=== PATIENT | male | born 1965 | race Caucasian/White ===

== ENCOUNTER 2020-05-10 20:13 | Emergency (ER) | payer BC, SELFPAY ==
[2020-05-10 20:14] VITALS: BP 150/96; PULSE 79; RESP 16; TEMP 36.7; O2SAT 98; BMI 23.7
--- NOTE | 2020-05-10 20:32 | CT_ITS ---
PROCEDURE: CT HEAD/BRAIN WO CON CLINICAL INDICATION: dizzy spells Dizziness COMPARISON: No exams were available for comparison TECHNIQUE: Axial images obtained. All CT scans at the facility use one or more dose reduction, viz: automated exposure control, ma/kV adjustment per patient size (including targeted exams where dose is matched to indication, i.e. head), or iterative reconstruction technique. FINDINGS: No midline shift, mass effect, intracranial hemorrhage, hydrocephalus, or extra-axial fluid collection is evident. The calvarium has an unremarkable appearance. No mastoid effusion. No sinus air-fluid level. IMPRESSION: No acute intracranial finding Dictated by: Paco Orona MD 05/11/2020 05:47 Paco Orona MD in [facility] 05/11/2020 05:47
--- NOTE | 2020-05-10 20:32 | ECG_ITS ---
APPROVED REPORT Exam: Resting ECG HR:77 bpm ECG Measurements Heart Rate 77 AXES LA 140 P 76 QRSd 86 QRS 56 QT 390 T 49 QTc 441 Conclusion Normal sinus rhythm Normal ECG Electronically signed by : Aaron Smart, 05/11/2020 09:21:12
--- NOTE | 2020-05-10 20:33 | XR_ITS ---
PROCEDURE: XR CHEST 2V CLINICAL HISTORY: dizziness COMPARISON: No exams were available for comparison FINDINGS: The cardiomediastinal silhouette and pulmonary vascularity are within normal limits. The lungs are clear without infiltrates, suspicious nodules, or pleural effusions. No acute bony abnormalities. IMPRESSION: No acute findings. Dictated by: Paco Orona MD 05/10/2020 21:45 Paco Orona MD in [facility] 05/10/2020 21:45
--- NOTE | 2020-05-10 20:42 | CT_ITS ---
PROCEDURE: CT CERVICAL SPINE WO CON CLINICAL INDICATION: dizziness COMPARISON: No exams were available for comparison TECHNIQUE: Axial images obtained with sagittal and coronal reformats. All CT scans at the facility use one or more dose reduction, viz: automated exposure control, ma/kV adjustment per patient size (including targeted exams where dose is matched to indication, i.e. head), or iterative reconstruction technique. Axial spiral CT scanning performed of the cervical spine beginning at the base of the skull and continuing to the upper T-spine. 3-D multiplanar reconstruction with 3-D manipulation of volumetric data set in image rendering was completed by the radiologist and/or technologist with the supervision of the radiologist on independent workstation. FINDINGS: No fracture or dislocation evident. There is straightening of the cervical lordosis at the C3-C4 level. There is some decrease in height anteriorly of C4 and C5 with small osteophytes anteriorly. This is felt to represent chronic change. No cortical fractures are evident. The lung apices are clear. There are scattered small nodes in the neck. Nodularity is noted involving the posterior aspect of the left lobe of the thyroid gland at 11 mm. IMPRESSION: No acute fracture or dislocation. Degenerative changes C3-C4 and C4-C5. There is straightening/reversal of the normal lordosis which may be due to patient positioning or muscle spasm. Dictated by: Paco Orona MD 05/11/2020 05:53 Paco Orona MD in [facility] 05/11/2020 05:53
--- NOTE | 2020-05-10 20:43 | HMH.EDDIZZ ---
ED Disposition Clinical Impression: Vertigo Disposition: Home, Self-Care Condition on Discharge: Good Instructions: Dizziness, Nonvertigo Additional Instructions: use meds and see pcp for follow up Prescriptions: Meclizine HCl [Antivert 25mg tablet] 25 mg PO TID #15 tab Prescription Printed Referrals: Yuliana Cardoso APRN [Primary Care Provider] - - Critical Care Critical Care Time: No Attestation: On 05/10/20, the high probability of a clinically significant, sudden or life threatening deterioration of the following system(s) required my full and direct attention, intervention and personal management. The time I documented below is in addition to time spent performing reported procedures but includes the following listed in this critical care notation. Medical Decision Making - Medical Records Medical records reviewed: Yes: I reviewed the patient's medical records. - [place] Inquiry Pt receiving controlled substance: No Vital Signs: 05/10/20 20:14 05/10/20 21:14 05/10/20 22:14 Temperature 98.1 F Temperature Source Oral Pulse Rate [Left Radial] 79 75 76 Respiratory Rate 16 16 15 Blood Pressure [Right Arm] 150/96 H 137/81 121/72 Blood Pressure Mean [Right Arm] 114 99 88 Blood Pressure Source [Right Arm] Automatic Cuff Automatic Cuff Automatic Cuff Blood Pressure Position [Right Arm] Sitting Sitting Sitting 02 Sat by Pulse Oximetry 98 97 96 Oxygen Delivery Method Room Air Room Air Room Air 05/10/20 23:00 Temperature Temperature Source Pulse Rate [Left Radial] 63 Respiratory Rate 16 Blood Pressure [Right Arm] 118/77 Blood Pressure Mean [Right Arm] 90 Blood Pressure Source [Right Arm] Automatic Cuff Blood Pressure Position [Right Arm] Sitting 02 Sat by Pulse Oximetry 97 Oxygen Delivery Method Room Air - Lab Data Lab results reviewed: Yes: I reviewed the patient's lab results. Lab Results 05/10/20 20:23: WBC 8.9, RBC 5.31, Hgb 16.8, Hct 50.7, MCV 95.5 H, MCH 31.6 H, MCHC 33.1, RDW 13.0, Plt Count 228, MPV 7.6, Neut % (Auto) 80.4 H, Lymph % (Auto) 15.5, [place] % (Auto) 2.9, Eos % (Auto) 0.9, Baso % (Auto) 0.2, Neut # (Auto) 7.2, Lymph # (Auto) 1.4, [place] # (Auto) 0.3, Eos # (Auto) 0.1, Baso # (Auto) 0.0 05/10/20 20:23: Sodium 146 H, Potassium 3.7, Chloride 103, Carbon Dioxide 32 H, Anion Gap 14.7, BUN 13, Creatinine 0.80, Estimated Creat Clear 123, Estimated GFR 101, Est GFR ( Amer) 122, Glucose 164 H, Calcium 10.0, Total Bilirubin 1.0, AST 27, ALT 23, Alkaline Phosphatase 77, Troponin I < 0.01, Total Protein 8.6 H, Albumin 4.9, Globulin 3.7 H, Albumin/Globulin Ratio 1.3 05/10/20 20:23: Plasma/Serum Alcohol < 10 05/10/20 20:23: ESR 2 05/10/20 20:23: C-Reactive Protein 0.6 Result diagrams: 05/10/20 20:23 05/10/20 20:23 Orders (Tests/Meds): ED MEDICATIONS Generic Name Dose Route Start Last Admin Trade Name Freq PRN Reason Stop Dose Admin Sodium Chloride 1,000 mls @ 999 mls/hr 05/10/20 21:15 05/10/20 21:13 Sod Chlor 0.9% 1000ml Bag IV 05/10/20 22:15 999 mls/hr .Q1H1M ABEBA Administration Discontinued Medications Generic Name Dose Route Start Last Admin Trade Name Freq PRN Reason Stop Dose Admin Iopamidol 100 ml 05/10/20 21:44 05/10/20 21:46 Iopamidol-370 (76%);100ml Bottle IV 05/10/20 21:45 100 ml ONCE ONE Administration Meclizine HCl 25 mg 05/10/20 22:28 05/10/20 23:06 Meclizine 25mg Tablet PO 05/10/20 22:29 25 mg ONCE ONE Administration Methylprednisolone Sodium Succinate 125 mg 05/10/20 21:23 05/10/20 21:27 Methylprednisolone Sod Succ 125mg Vial IV 05/10/20 21:24 125 mg ONCE ONE Administration Ondansetron HCl 4 mg 05/10/20 21:23 05/10/20 21:27 Ondansetron 4mg/2ml Vial IV 05/10/20 21:24 4 mg ONCE ONE Administration Sodium Chloride 50 ml 05/10/20 21:44 05/10/20 21:46 0.9 % Sodium Chloride 50 Ml Vial IV 05/10/20 21:45 50 ml ONCE ONE Administration Sodium Chloride 10 ml 05/10/20 21:44 05/10/20 21:46
[2020-05-10 20:44] LABS: Basophils % 0.2 % (0.1-2.0); Eosinophils # 0.1 K/mm3 (0.0-0.4); Eosinophils % 0.9 % (0.1-12.0); Hematocrit 50.7 % (42.0-52.0); Hemoglobin 16.8 g/dL (14.1-18.0); Lymphocytes # 1.4 K/mm3 (0.7-4.5); Lymphocytes % 15.5 % (10-50); Mean Corpuscular HGB Conc 33.1 g/dL (31.8-35.4); Mean Corpuscular Hemoglobin 31.6 pg (27.0-31.2); Mean Corpuscular Volume 95.5 fl (80-94); Mean Platelet Volume 7.6 fl (7.4-10.4); Monocytes # 0.3 K/mm3 (0.1-1.0); Monocytes % 2.9 % (1.7-9.3); Neutrophils # 7.2 K/mm3 (1.8-7.8); Neutrophils % 80.4 % (37.0-80.0); Platelet Count 228 K/mm3 (142-424); Red Blood Count 5.31 M/mm3 (4.60-6.20); White Blood Count 8.9 K/mm3 (4.8-10.8)
[2020-05-10 20:47] LABS: Alanine Aminotransferase 23 U/L (12-78); Albumin Level 4.9 g/dl (3.5-5.0); Albumin/Globulin Ratio 1.3 (1.1-1.8); Alkaline Phosphatase 77 U/L (38-126); Anion Gap 14.7 mEq/L (5-15); Aspartate Amino Transferase 27 U/L (17-59); Blood Urea Nitrogen 13 mg/dl (9-20); Carbon Dioxide 32 mmol/L (22.0-30.0); Chloride 103 mmol/L (98-107); Creatinine Clearance Estimated 123 mL/min (50-200); Estimated Glomerular Filt Rate 101 ml/min (>60); GFR (African American) 122 ML/MIN (>60); Globulin 3.7 g/dL (1.3-3.2); Glucose 164 mg/dl (74-100); Potassium 3.7 mmoL/L (3.5-5.1); Sodium 146 mmol/L (136-145); Total Protein,Serum 8.6 g/dl (6.3-8.2)
--- NOTE | 2020-05-10 20:49 | PC.NURSE ---
pt to RAD
[2020-05-10 20:59] LABS: Ethyl Alcohol < 10 mg/dl (0-10)
[2020-05-10 21:04] LABS: Troponin I < 0.01 ng/ml (0.00-0.034)
[2020-05-10 21:10] LABS: C-Reactive Protein 0.6 mg/L (0-4)
[2020-05-10 21:13] LABS: Erythrocyte Sedimentation Rate 2 mm/hr (0-20)
[2020-05-10 21:14] VITALS: BP 137/81; PULSE 75; RESP 16; O2SAT 97
--- NOTE | 2020-05-10 21:17 | CT_ITS ---
Procedure: CT ANGIO NECK CLINICAL HISTORY: dizziness Dizziness and giddiness COMPARISON: No exams were available for comparison TECHNIQUE: IV Contrast: 100ml Isovue 370 Axial images obtained with sagittal and coronal reformats. All CT scans at the facility use one or more dose reduction, viz: automated exposure control, ma/kV adjustment per patient size (including targeted exams where dose is matched to indication, i.e. head), or iterative reconstruction technique. FINDINGS: CTA neck: The aortic arch and great vessels have an unremarkable appearance. The proximal to mid aspect of the left common carotid artery is somewhat obscured by artifact from the contrast within the left subclavian vein. The right common carotid and internal carotid artery have an unremarkable appearance. The left common carotid and internal carotid artery have an unremarkable appearance. The vertebrals have an unremarkable appearance. No evidence of stenosis, occlusion, or dissection CTA head: No aneurysm, no stenosis occlusion or dissection. No midline shift, mass effect or enhancing lesion evident. No sinus thrombosis. IMPRESSION: Negative CTA of the neck and head. No stenosis occlusion or dissection. Dictated by: Paco Orona MD 05/11/2020 06:55 Paco Orona MD in [place] 05/11/2020 06:55
[2020-05-10 22:14] VITALS: BP 121/72; PULSE 76; RESP 15; O2SAT 96
--- NOTE | 2020-05-10 22:29 | PC.NURSE ---
cervical ct result received. aware. waiting on ct head result.
[2020-05-10 23:00] VITALS: BP 118/77; PULSE 63; RESP 16; O2SAT 97
[2020-05-10 23:35] VITALS: BP 116/71; PULSE 65; RESP 16; TEMP 36.7; O2SAT 98
== END 2020-05-10 23:38 | disposition home or self-care (01) ==
PROVIDERS: Emergency Provider Emergency Medicine; PCP Nurse Practitioner Family
DX: R42 Dizziness and giddiness (principal); Z88.5 Allergy status to narcotic agent; Z87.891 Personal history of nicotine dependence
CPT/HCPCS: 70450; 70496; 70498; 71046; 72125; 80053; 84484; 85025; 85651; 86140; 93005; 96365; 96375; 99283; J2405; Q9967

== ENCOUNTER 2020-09-23 16:06 | Emergency (ER) | payer BC, SELFPAY ==
[2020-09-23 16:25] VITALS: BP 137/87; PULSE 90; RESP 19; TEMP 36.8; O2SAT 97; BMI 22.4
--- NOTE | 2020-09-23 17:26 | HMH.EDUTC ---
[facility] [place] Clinical Impression: Laceration of left thumb Qualifiers: Encounter type: initial encounter Damage to nail status: without damage Foreign body presence: without foreign body Qualified Code(s): S61.012A - Laceration without foreign body of left thumb without damage to nail, initial encounter Disposition: Home, Self-Care Condition on Discharge: Good Instructions: DI for Laceration Repair Additional Instructions: Keep the wound clean and dry. Keep a dressing on it if you are going to be getting it dirty. Watch the for signs of infection, such as redness, swelling, drainage, fever. etc. Take tylenol or ibuprofen for pain. Follow up with your regular doctor. Return in 10 to 12 days to have the sutures removed. GO TO THE ER FOR ANY WORSENING SYMPTOMS OR CONCERNS. Prescriptions: cephALEXin [cephALEXin 500mg capsule] 500 mg PO Q6H 10 Days #40 cap Transmission Status: Received by [id number] Referrals: Yuliana Cardoso APRN [Primary Care Provider] - Time of Disposition: 17:31 Medical Decision Making - Medical Records Medical records reviewed: No: I reviewed the patient's medical records. - [place] Inquiry Pt receiving controlled substance: No Vital Signs: 09/23/20 16:25 09/23/20 17:30 Temperature 98.3 F 98.3 F Temperature Source Oral Oral Pulse Rate 87 Pulse Rate [Right] 90 Respiratory Rate 19 20 Blood Pressure 135/84 Blood Pressure [Right Arm] 137/87 Blood Pressure Mean [Right Arm] 103 Blood Pressure Source [Right Arm] Automatic Cuff 02 Sat by Pulse Oximetry 97 Oxygen Delivery Method Room Air Room Air Orders (Tests/Meds): ED MEDICATIONS Discontinued Medications Generic Name Dose Route Start Last Admin Trade Name Sajan PRN Reason Stop Dose Admin Lidocaine HCl 5 ml 09/23/20 16:54 09/23/20 16:55 Lidocaine 1% 5ml Pf Vial IJ 09/23/20 16:55 5 ml ONCE ONE Administration [facility] [place] - General Stated complaint: AO 09/20@1530 lac to left thurmb Time Seen by Provider: 09/23/20 16:45 Mode of Arrival: Family Vehicle Source of Information: Patient, Spouse Description of Symptoms (Recalled from Triage Doc. by RN): Pt reports earlier today, while working on his truck, he cut his left his left thumb. Wound is ~ 1 long, straight, midlone on posterior thumb. Pt reports it bleed a lot , and tapped it up with black tape. Pt was going to self care at home, but was urged to seek treatment by his . 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 This occured right before he came in today. He states that he had a tetanus immunization around 1 year ago, so this is up to date. - Related Data Previous Rx's Medication Instructions Recorded cephALEXin [cephALEXin 500mg 500 mg PO Q6H 10 Days #40 cap 09/23/20 capsule] Allergies Allergy/AdvReac Type Severity Reaction Status Date / Time acetaminophen [From TYLENOL] Allergy Intermediate I-HIVES Verified 05/10/20 20:51 codeine [CODEINE] Allergy Unknown I-HIVES Verified 05/10/20 20:51 - Worker's Comp Is this a Worker's Comp case?: No [facility] History - Hepatitis A Screen Drug use history?: No High risk sexual behaviors?: No History of sexually transmitted infection?: No Currently employed?: No Childcare worker?: No Do you have indoor plumbing?: Yes Do you have electricity?: Yes Attestation statement:: This patient has been screened for Hepatitis A risk factors. I have reviewed the patient's past medical history: Yes Medical History: Denies:: Diabetes Mellitus Type 1, Diabetes Mellitus Type 2 - Social History Smoking Status: Former smoker Tobacco Type:
[2020-09-23 17:30] VITALS: BP 135/84; PULSE 87; RESP 20; TEMP 36.8; O2SAT 97
== END 2020-09-23 17:35 | disposition home or self-care (01) ==
PROVIDERS: Emergency Provider Nurse Practitioner Family; PCP Nurse Practitioner Family
DX: S61.012A Laceration without foreign body of left thumb without damage to nail, initial encounter (principal); W26.8XXA Contact with other sharp object(s), not elsewhere classified, initial encounter; Y92.89 Other specified places as the place of occurrence of the external cause; Z87.891 Personal history of nicotine dependence
CPT/HCPCS: 12001; 99202; G0463

== ENCOUNTER → 2021-04-06 19:38 | Outpatient (CLI) | payer BC, SELFPAY | PROVIDERS: Visit Provider Nurse Practitioner Family | DX: Z20.822 Contact with and (suspected) exposure to COVID-19 (principal) | CPT/HCPCS: C9803; U0003; U0005 ==

== ENCOUNTER 2021-04-25 13:43 | Emergency (ER) | payer BC, SELFPAY ==
[2021-04-25 13:44] VITALS: BP 138/96; PULSE 84; RESP 18; TEMP 36.6; O2SAT 97; BMI 22.4
--- NOTE | 2021-04-25 14:36 | HMH.EDUTC ---
[facility] [place]ression: Sinusitis Qualifiers: Sinusitis location: unspecified location Chronicity: unspecified Qualified Code(s): J32.9 - Chronic sinusitis, unspecified Disposition: Home, Self-Care Condition on Discharge: Good Instructions: Sinusitis, Sinus Headache, DI for Sinusitis, Amoxicillin and Clavulanic Acid Additional Instructions: *Monitor Temp, Over the counter Motrin or Tylenol as directed/as needed Tylenol every 4 hours and Motrin every 6 hours (as long as your family doctor has told you that you can take it) for fever or pain. and straight to ER if unable to lower temp less than 101.0 after medication given *Warm salt water gargles may help to soothe the throat *Throat Lozenges *Warm fluids like tea with honey may help to soothe the throat *Sleep elevated *Humidifier/Vaporizer *Flonase 2 sprays in each nostril daily but be aware that it may take 2-3 days before you notice improvement Take antibiotics as prescribed Follow up IMMEDIATELY for new or worsening symptoms or no Noticeable improvement over the next 48-72 hours. 911 for difficulty breathing or swallowing Prescriptions: Amoxicillin/Potassium Clav [Augmentin 875-125 Tablet] 1 tab PO Q12H 10 Days #20 tab Transmission Status: Received by [id number] predniSONE [Deltasone 10mg tablet] 10 mg PO BID 5 Days #10 tab Transmission Status: Received by [id number] Fluticasone Propionate [Flonase 50mcg nasal spray 16gm] 1 spr NS DAILY #1 each Transmission Status: Received by [id number] Referrals: Yuliana Cardoso APRN [Primary Care Provider] - As needed Forms: Work/School Release Time of Disposition: 14:51 Medical Decision Making - [place] Inquiry Pt receiving controlled substance: No [place] was queried for this patient: No Vital Signs: 04/25/21 13:44 Temperature 97.8 F Temperature Source Oral Pulse Rate [Left Radial] 84 Respiratory Rate 18 Blood Pressure [Right Arm] 138/96 H Blood Pressure Mean [Right Arm] 110 Blood Pressure Source [Right Arm] Automatic Cuff Blood Pressure Position [Right Arm] Sitting 02 Sat by Pulse Oximetry 97 Oxygen Delivery Method Room Air Orders (Tests/Meds): ED MEDICATIONS Discontinued Medications Generic Name Dose Route Start Last Admin Trade Name Freq PRN Reason Stop Dose Admin Ceftriaxone Sodium 1 gm 04/25/21 14:47 04/25/21 14:58 Ceftriaxone 1gm Vial IM 04/25/21 14:48 1 gm ONCE ONE Administration Lidocaine HCl 0 ml 04/25/21 14:47 04/25/21 14:58 Lidocaine 1% 5ml Pf Vial IM 04/25/21 14:48 2.5 ml ONCE ONE Administration Methylprednisolone Sodium Succinate 125 mg 04/25/21 14:47 04/25/21 14:58 Methylprednisolone Sod Succ 125mg Vial IM 04/25/21 14:48 125 mg ONCE ONE Administration [facility] [place] - General Stated complaint: head congestion Time Seen by Provider: 04/25/21 14:44 Mode of Arrival: Ambulatory Source of Information: Patient Limitations: No Limitations Description of Symptoms (Recalled from Triage Doc. by RN): stopped up, worse at night HEENT Symptoms (Recalled from RN notes): Yes Resp Symptoms (Recalled from RN notes): No Skin Symptoms (Recalled from RN notes): No MS Symptoms (Recalled from RN notes): No Functional Status (Recalled from RN notes): na - History of Present Illness Provider Complaint: Patient states that he has been having sinus issues for almost a month States that he has been having sinus pain and pressure along with cough at times States that when he lays down it is worse States that he used some nasal spray and it helped a little but the last couple of days it has got worse so he came in to get checked - Related Data Previous Rx's Medication Instructions Recorded Amoxicillin/Potassium Clav 1 tab PO Q12H 10 Days #20 tab 04/25/21 [Augmentin 875-125 Tablet] Fluticasone Propionate [Flonase 1 spr NS DAILY #1 each 04/25/21 50mcg nasal spray 16gm] predniSONE [Deltasone 10mg tablet] 10 mg PO BID
[2021-04-25 15:25] VITALS: BP 138/96; PULSE 84; RESP 18; TEMP 36.6; O2SAT 97
== END 2021-04-25 15:28 | disposition home or self-care (01) ==
PROVIDERS: Emergency Provider Nurse Practitioner; PCP Nurse Practitioner Family
DX: J32.9 Chronic sinusitis, unspecified (principal)
CPT/HCPCS: 96372; 99202; G0463

== ENCOUNTER 2021-06-07 15:22 | Emergency (ER) | payer BC, SELFPAY ==
[2021-06-07 15:35] VITALS: BP 141/76; PULSE 93; RESP 18; TEMP 37.9; O2SAT 96; BMI 19.8
--- NOTE | 2021-06-07 15:47 | HMH.EDUTC ---
[facility] [place] Clinical Impression: Bronchitis Sinusitis Qualifiers: Sinusitis location: unspecified location Chronicity: unspecified Qualified Code(s): J32.9 - Chronic sinusitis, unspecified Disposition: Home, Self-Care Condition on Discharge: Good Instructions: Sinusitis, DI for Sinusitis, DI for COVID-19 (Suspected or Confirmed ), Preventing the Spread of Coronavirus Discharge Instructions Additional Instructions: ? Start antibiotic today. Be sure to complete entire prescription even if feeling better ? Monitor temp. Tylenol every 4 hours as needed and / or ibuprofen every 6 hours as needed ( As long as your primary care physician has told you that it ok to take both. For fever/aches/pains ER if no less than 101 despite Tylenol or Motrin ? Humidifier/vaporizer or hot steamy shower ? Inhaler every 4-6 hours as needed like we discussed. If unsure how to use it, ask pharmacist to demonstrate how. Should help open airways and improve cough, wheezing, and shortness of breath ? Mucinex during the day for your cough and cough suppressant only at night. Be sure to drink lots of water. Insurance may not cover a prescriptions for mucinex. Might be cheaper to get 400mg tablets and take 2 tablet in the morning, mid-day and evening with lots of water. *Start steroid tomorrow. Helps with inflammation therefore, cough and wheezing. Follow directions on the package. Reviewed side effects. Patient reports taking them before. Follow up IMMEDIATELY for new or worsening of symptoms OR no noticeable improvement over the next 48-72 hours. 911 immediately for any life threatening symptoms such as chest pain or difficulty breathing Prescriptions: Albuterol Sulfate [Proventil-HFA 90mcg/puff Inh] 1 - 2 puffs IH Q6HP PRN #1 each PRN Reason: Shortness Of Breath Transmission Status: Received by [id number] Meclizine HCl [Antivert 25mg tablet] 25 mg PO TID PRN #15 tab PRN Reason: Dizziness Transmission Status: Received by [id number] predniSONE [Deltasone 10mg tablet] 10 mg PO BID 5 Days #10 tab Transmission Status: Received by [id number] Azithromycin [Z-Otilio 250mg Tab] 250 mg PO DIRECTED #6 tab Transmission Status: Received by [id number] Referrals: Yuliana Cardoso APRN [Primary Care Provider] - As needed Forms: Work/School Release Medical Decision Making - [place] Inquiry Pt receiving controlled substance: No [place] was queried for this patient: No Vital Signs: 06/07/21 15:35 06/07/21 15:51 Temperature 100.3 F H 100.3 F H Temperature Source Oral Pulse Rate 93 H Pulse Rate [Left] 93 H Respiratory Rate 18 18 Blood Pressure 141/76 H Blood Pressure [Right Arm] 141/76 H Blood Pressure Mean [Right Arm] 97 02 Sat by Pulse Oximetry 96 - Lab Data Lab results reviewed: Yes: I reviewed the patient's lab results. Lab Results 06/07/21 15:40: Strep Scn Rapid Clinic Negative Orders (Tests/Meds): ED MEDICATIONS Discontinued Medications Generic Name Dose Route Start Last Admin Trade Name Markq PRN Reason Stop Dose Admin Ceftriaxone Sodium 1 gm 06/07/21 15:56 06/07/21 16:09 Ceftriaxone 1gm Vial IM 06/07/21 15:57 1 gm ONCE ONE Administration Lidocaine HCl 0 ml 06/07/21 15:56 Lidocaine 1% 5ml Pf Vial IM 06/07/21 15:57 ONCE ONE Lidocaine HCl 2 ml 06/07/21 16:02 06/07/21 16:09 Lidocaine 1% Pf 2ml Ampule IM 06/07/21 16:03 2 ml ONCE ONE Administration Methylprednisolone Sodium Succinate 125 mg 06/07/21 15:56 06/07/21 16:09 Methylprednisolone Sod Succ 125mg Vial IM 06/07/21 15:57 125 mg ONCE ONE Administration ORDERS Category Date Time Status Strep Screen Confirmation Stat Micro 06/07/21 15:40 Received [facility] [place] HPI - General Stated complaint: sore throat cough sob aguilar fever aches Time Seen by Provider: 06/07/21 15:47 Mode of Arrival: Ambulatory Source of Information: Patient Limitations: No Limitations Description o
[2021-06-07 15:50] LABS: UTC Strep Screen (Rapid) Negative (Negative)
[2021-06-07 15:51] VITALS: BP 141/76; PULSE 93; RESP 18; TEMP 37.9
== END 2021-06-07 16:25 | disposition home or self-care (01) ==
PROVIDERS: Emergency Provider Nurse Practitioner; PCP Nurse Practitioner Family
DX: J20.9 Acute bronchitis, unspecified (principal); U07.1 COVID-19; J32.9 Chronic sinusitis, unspecified; Z87.891 Personal history of nicotine dependence
CPT/HCPCS: 87880; 96372; 99202; C9803; G0463; U0003; U0005

== ENCOUNTER 2022-01-31 19:50 | Emergency (ER) | payer BC, SELFPAY ==
[2022-01-31 20:15] VITALS: BP 131/83; PULSE 92; RESP 17; TEMP 37.3; O2SAT 98; BMI 20.9
[2022-01-31 20:17] LABS: UTC Strep Screen (Rapid) Positive (Negative)
--- NOTE | 2022-01-31 20:41 | HMH.EDUTC ---
[facility] [place] Clinical Impression: Strep throat Disposition: Home, Self-Care Condition on Discharge: Good Instructions: Strep Throat, DI for Strep Throat Additional Instructions: Drink plenty of fluids. Take tylenol or ibuprofen for pain or fever. Take the medications as directed. Follow up with your regular doctor. GO TO THE ER FOR ANY WORSENING SYMPTOMS Throw your tooth brush away and get a new one. Don't start the oral steroids until tomorrow, since you had the shot here today. Prescriptions: Ondansetron [Zofran 4mg ODT] 4 mg PO Q8HP PRN #20 tab PRN Reason: Nausea Transmission Status: Pending to [id number] methylPREDNISolone [Medrol] 4 mg PO DIRECTED 6 Days #21 packet Transmission Status: Pending to [id number] Cefdinir [Omnicef 300mg Capsule] 300 mg PO BID #20 cap Transmission Status: Pending to [id number] Referrals: Tom Patterson MD [Primary Care Provider] - Forms: Work/School Release Time of Disposition: 20:43 Medical Decision Making - Medical Records Medical records reviewed: No: I reviewed the patient's medical records. - [place] Inquiry Pt receiving controlled substance: No Vital Signs: 01/31/22 20:15 01/31/22 20:43 Temperature 99.1 F 99.1 F Temperature Source Oral Pulse Rate 92 H Pulse Rate [Left] 92 H Respiratory Rate 17 17 Blood Pressure 131/83 Blood Pressure [Right Arm] 131/83 Blood Pressure Mean [Right Arm] 99 02 Sat by Pulse Oximetry 98 - Lab Data Lab results reviewed: Yes: I reviewed the patient's lab results. Lab Results 01/31/22 20:16: Strep Scn [facility] Positive A Orders (Tests/Meds): ED MEDICATIONS Discontinued Medications Generic Name Dose Route Start Last Admin Trade Name Freq PRN Reason Stop Dose Admin Ceftriaxone Sodium 1 gm 01/31/22 20:34 01/31/22 20:42 Ceftriaxone 1gm Vial IM 01/31/22 20:35 1 gm ONCE ONE Administration Dexamethasone Sodium Phosphate 8 mg 01/31/22 20:34 01/31/22 20:42 Dexamethasone 4mg/Ml 1ml Vial IM 01/31/22 20:35 8 mg ONCE ONE Administration Lidocaine HCl 0 ml 01/31/22 20:34 01/31/22 20:42 Lidocaine 1% 5ml Pf Vial IM 01/31/22 20:35 2 ml ONCE ONE Administration ORDERS Category Date Time Status Covid-19 Nasal PCR ([facility]) Routine Lab 01/31/22 20:07 Received [facility] [place] HPI - General Stated complaint: covid test, congestion, body aches Time Seen by Provider: 01/31/22 20:15 Mode of Arrival: Ambulatory Source of Information: Patient Limitations: No Limitations Description of Symptoms (Recalled from Triage Doc. by RN): patient comes in for sore throat, cough, swollen glands. symptoms began a few days ago. HEENT Symptoms (Recalled from RN notes): Yes Resp Symptoms (Recalled from RN notes): Yes Skin Symptoms (Recalled from RN notes): No MS Symptoms (Recalled from RN notes): No Functional Status (Recalled from RN notes): n/a - History of Present Illness Provider Complaint: He c/o sore throat, chills, and body aches for the past 2 days. - Related Data Previous Rx's Medication Instructions Recorded ondansetron 4 mg disintegrating 4 mg PO Q8H PRN #30 tab 11/29/21 tablet Cefdinir [Omnicef 300mg Capsule] 300 mg PO BID #20 cap 01/31/22 Ondansetron [Zofran 4mg ODT] 4 mg PO Q8HP PRN #20 tab 01/31/22 methylPREDNISolone [Medrol] 4 mg PO DIRECTED 6 Days #21 01/31/22 packet Allergies Allergy/AdvReac Type Severity Reaction Status Date / Time acetaminophen [From TYLENOL] Allergy Intermediate I-HIVES Verified 01/31/22 20:17 codeine [CODEINE] Allergy Unknown I-HIVES Verified 01/31/22 20:17 - Worker's Comp Is this a Worker's Comp case?: No [facility] History - Hepatitis A Screen Attestation statement:: This patient has been screened for Hepatitis A risk factors. I have reviewed the patient's past medical history: Yes Medical History: Denies:: Diabetes Mellitus Type 1, Diabetes Mellitus Ty
[2022-01-31 20:43] VITALS: BP 131/83; PULSE 92; RESP 17; TEMP 37.3
== END 2022-01-31 20:45 | disposition home or self-care (01) ==
PROVIDERS: Emergency Provider Nurse Practitioner Family; PCP Emergency Medicine
DX: U07.1 COVID-19 (principal); J02.0 Streptococcal pharyngitis
CPT/HCPCS: 87880; 96372; 99212; C9803; G0463; J0696; U0003; U0005

== ENCOUNTER 2022-06-07 20:27 | Emergency (ER) | payer BC, SELFPAY ==
[2022-06-07 20:27] VITALS: BP 132/72; PULSE 97; RESP 20; TEMP 36.8; O2SAT 98; BMI 21.7
[2022-06-07 21:21] LABS: Coronavirus 19, PCR Not Detected (NotDetected); Influenza A, PCR Not Detected (NotDetected); Influenza B, PCR Not Detected (NotDetected)
[2022-06-07 21:37] LABS: Strep Scrn Group A (Rapid) Negative (Negative)
[2022-06-07 22:00] VITALS: BP 112/80; PULSE 91; O2SAT 96
--- NOTE | 2022-06-07 22:01 | HMH.EDGENADL ---
Discharge Plan Disposition Patient Disposition: Home, Self-Care Condition: Good Prescriptions Prescriptions: No Action No Known Home Medications Referrals Follow up/Referrals: Provider,Referral, MD [Primary Care Provider] - See instructions Activity Restrictions/Add. Instructions Additional Instructions/Restrictions: Follow-up with your family doctor within 72 hours to establish care for this visit to the emergency department and ensure improvement of symptoms. If you have difficulty breathing, chest pain, vision changes, numbness/tingling/weakness on any side of your body, or any other concerning symptoms, return to the ED for further evaluation. Take Zyrtec every night, as well as Tylenol and Motrin every 6 hours with food and water to prevent symptoms and treat body aches. Clinical Impressions Clinical Impression: Upper respiratory infection Stand Alone Forms Stand Alone Forms: Work/School Release Instructions Patient Instructions: DI for Acute Bronchitis Discharge ED Provider: Zachery Hyatt General Adult HPI General Chief complaint: Upper Respiratory Infection Stated complaint: Head cold, body aches Time Seen by Provider: 06/07/22 21:00 Mode of Arrival: Family Vehicle Source of Information: Patient and Spouse Limitations: No Limitations Description of Symptoms (Recalled from ER Triage Doc. by RN): Pt c/o body aches, chills, sinus & chest congestion, and cough for 3 days. History of Present Illness HPI narrative: This is an otherwise healthy 56-year-old male presenting with fever, chills, body aches, cough. Patient states the symptoms started 3 days ago. P.o. intake has been within normal limits. He has not had nausea or vomiting, but nonproductive cough. Denies any sick contacts, but was recently diagnosed with influenza a few weeks prior to arrival. Fever as high as 102 ?F. Denies myalgias, arthralgias, dysuria, hematuria, diarrhea, or any other concerning history. Related Data Home Medications Medication Instructions Recorded Confirmed No Known Home Medications 06/07/22 06/07/22 Allergies Allergy/AdvReac Type Severity Reaction Status Date / Time acetaminophen [From TYLENOL] Allergy Intermediate I-HIVES Verified 05/16/22 13:04 codeine [CODEINE] Allergy Unknown I-HIVES Verified 05/16/22 13:04 [facility] Disclaimer: The information contained in this section may have been updated after the patient was seen, as this information can be updated by other users. Social History Smoking Status: Never smoker alcohol intake: current current occupational status: employed Travel in the last 8 weeks: None ROS Obtained: Yes All systems reviewed & no additional complaints except as documented Physical Exam General General appearance: alert and in no apparent distress Head Head exam: atraumatic, normocephalic and normal inspection Eye Eye exam: Present normal appearance, PERRL and EOMI ENT ENT exam: Present normal exam, normal oropharynx, mucous membranes moist, TM's normal bilaterally and normal external ear exam Neck Neck exam: Present normal inspection, full ROM and trachea midline; Absent meningismus or lymphadenopathy Chest Chest inspection: Present normal inspection and symmetric chest wall rise; Absent tenderness Respiratory Respiratory exam: Present normal lung sounds bilaterally and other (Intermittent cough); Absent respiratory distress Cardiovascular Cardiovascular exam: Present regular rate and normal rhythm; Absent JVD Abdominal Exam Abdominal exam: Present soft and normal bowel sounds; Absent distention, tenderness or guarding Extremities Exam Extremities exam: Present normal inspection, full ROM and normal capillary refill; Absent calf tenderness Back Exam Back exam: Present normal inspection; Absent tenderness Neurological Exam Neurological exam: Present alert and oriented X3 Psychiatric Psychiatric exam: Prese
--- NOTE | 2022-06-07 23:02 | ECG_ITS ---
APPROVED REPORT Exam: Resting ECG HR:84 bpm ECG Measurements Heart Rate 84 AXES CO 143 P 86 QRSd 87 QRS 78 QT 358 T 67 QTc 399 Conclusion SINUS RHYTHM NORMAL ECG UNCONFIRMED REPORT Electronically signed by : Aaron Smart MD 06/08/2022 09:23:06
[2022-06-07 23:22] VITALS: BP 128/75; PULSE 75; RESP 18; TEMP 36.9; O2SAT 98
== END 2022-06-07 23:25 | disposition home or self-care (01) ==
PROVIDERS: Emergency Provider Emergency Medicine
DX: R50.9 Fever, unspecified (principal); R09.89 Other specified symptoms and signs involving the circulatory and respiratory systems; R05.9 Cough, unspecified; R20.2 Paresthesia of skin; M79.10 Myalgia, unspecified site; Z20.822 Contact with and (suspected) exposure to COVID-19; Z88.5 Allergy status to narcotic agent; Z88.6 Allergy status to analgesic agent
CPT/HCPCS: 87430; 93005; 99284; C9803; U0003; U0005

== ENCOUNTER 2022-11-26 20:06 | Emergency (ER) | payer BC, SELFPAY ==
[2022-11-26 20:09] VITALS: BP 136/83; PULSE 82; RESP 16; TEMP 36.8; O2SAT 98; BMI 22.4
[2022-11-26 20:13] VITALS: BP 136/83; PULSE 75; RESP 20; O2SAT 99
--- NOTE | 2022-11-26 20:19 | XR_ITS ---
PROCEDURE INFORMATION: Exam: XR Complete Acute Abdomen Series Including Chest Exam date and time: 11/26/2022 8:22 PM Age: 57 years old Clinical indication: Pain and injury or trauma; Other: Hit in abdomen with hammer; Blunt; Rlq; Abdominal pain; Additional info: Accident, hit in abdomen with hammer TECHNIQUE: Imaging protocol: Radiologic exam. Complete acute abdomen series, including 2 or more views of the abdomen and a single view chest. COMPARISON: CR XR CHEST 2V 05/10/2020 8:39 PM FINDINGS: Lungs: Normal. No consolidation. Pleural spaces: Normal. No pleural effusions. No pneumothorax. Heart/Mediastinum: Normal. No cardiomegaly. Gastrointestinal tract: Normal. No bowel dilation. Intraperitoneal space: Normal. No free air. Bones/joints: Moderate degenerative changes noted throughout the lower spine. Bones are otherwise unremarkable. Soft tissues: Normal. IMPRESSION: No acute abnormality
--- NOTE | 2022-11-26 20:26 | HMH.EDWNDL ---
Discharge Plan Disposition Patient Disposition: Home, Self-Care Chief Complaint: Wound/Laceration Prescriptions Prescriptions: No Action No Known Home Medications Referrals Follow up/Referrals: Clarita Schmidt PA [Primary Care Provider] - See instructions Clinical Impressions Clinical Impression: Blunt trauma of abdominal wall, Foreign body (FB) in soft tissue Instructions Patient Instructions: DI for Blunt Trauma Discharge ED Provider: Leonardo (ED),Tom Gilliland Wound/Laceration HPI General Chief Complaint: Wound/Laceration Stated Complaint: AO 11/26 @1930 fb in stomach Metal Time Seen by Provider: 11/26/22 20:10 Mode of Arrival: Ambulatory Source of Information: Patient, Spouse and Medical Record Limitations: No Limitations Description of Symptoms (Recalled from ER Triage Doc. by RN): pt states was using 2 hammers to break up a skid and a piece broke off hit pt in rt abd. pt has a laceration to rt lower abd History of Present Illness HPI narrative: piece of hammer broke off and hit abd tonight Onset (ago): hour(s) Location: abdomen Place: home Patient tetanus UTD: Yes Context: accidental Related Data Home Medications Medication Instructions Recorded Confirmed No Known Home Medications 06/07/22 06/07/22 Allergies Allergy/AdvReac Type Severity Reaction Status Date / Time acetaminophen [From TYLENOL] Allergy Intermediate I-HIVES Verified 05/16/22 13:04 codeine [CODEINE] Allergy Unknown I-HIVES Verified 05/16/22 13:04 [facility] Disclaimer: The information contained in this section may have been updated after the patient was seen, as this information can be updated by other users. Social History Smoking Status: Current every day smoker tobacco type: smokeless tobacco alcohol intake: current current occupational status: employed Travel in the last 8 weeks: None ROS Obtained: Yes All systems reviewed & no additional complaints except as documented Physical Exam General General appearance: alert Head Head exam: normocephalic Eye Eye exam: Present PERRL and EOMI ENT ENT exam: Present mucous membranes moist Neck Neck exam: Present trachea midline Respiratory Respiratory exam: Absent respiratory distress Cardiovascular Cardiovascular exam: Present regular rate Abdominal Exam Abdominal exam: Present soft and other (abrasion nored rt abd); Absent tenderness or guarding Comment: no palpable fb Extremities Exam Extremities exam: Present full ROM Neurological Exam Neurological exam: Present alert, oriented X3 and CN II-XII intact; Absent motor sensory deficit Psychiatric Psychiatric exam: Present normal affect Skin Skin exam: Absent rash Medical Decision Making Medical Records Medical records reviewed: Yes I reviewed the patient's medical records. [place] Inquiry Pt receiving controlled substance: No Vital Signs: 11/26/22 20:09 11/26/22 20:13 11/26/22 20:30 Temperature 98.3 F Temperature Source Oral Pulse Rate 75 79 Pulse Rate [Right] 82 Respiratory Rate 16 20 18 Blood Pressure 136/83 125/79 Blood Pressure [Right Arm] 136/83 Blood Pressure Mean 115 94 Blood Pressure Mean [Right Arm] 100 02 Sat by Pulse Oximetry 98 99 98 11/26/22 21:00 11/26/22 21:30 Temperature Temperature Source Pulse Rate 76 71 Pulse Rate [Right] Respiratory Rate 18 20 Blood Pressure 119/76 121/67 Blood Pressure [Right Arm] Blood Pressure Mean 89 85 Blood Pressure Mean [Right Arm] 02 Sat by Pulse Oximetry 98 97 Lab Data Lab results reviewed: Yes I reviewed the patient's lab results. Orders (Tests/Meds): ORDERS Category Date Time Status XR acute abdomen series Stat Exams 11/26/22 20:19 Completed Radiology Data #1: Image(s): Abdomen Image Reviewed: Yes I have reviewed radiologist's interpretation Preliminary Findings: Abnormal small sq fb Medical Decision
--- NOTE | 2022-11-26 20:28 | PC.NURSE ---
Dr. Patterson at bedside
[2022-11-26 20:30] VITALS: BP 125/79; PULSE 79; RESP 18; O2SAT 98
--- NOTE | 2022-11-26 20:34 | PC.NURSE ---
patient to radiology
--- NOTE | 2022-11-26 20:41 | PC.NURSE ---
pt back to room, would like another XR view (lateral), and xray to take pt back to add a view to his previous order
[2022-11-26 21:00] VITALS: BP 119/76; PULSE 76; RESP 18; O2SAT 98
[2022-11-26 21:30] VITALS: BP 121/67; PULSE 71; RESP 20; O2SAT 97
[2022-11-26 21:58] VITALS: BP 121/67; PULSE 85; RESP 18; TEMP 36.8; O2SAT 97
== END 2022-11-26 22:07 | disposition home or self-care (01) ==
PROVIDERS: Emergency Provider Emergency Medicine; PCP Physician Assistant
DX: S31.149A Puncture wound of abdominal wall with foreign body, unspecified quadrant without penetration into peritoneal cavity, initial encounter (principal); W27.0XXA Contact with workbench tool, initial encounter; F17.220 Nicotine dependence, chewing tobacco, uncomplicated
CPT/HCPCS: 74021; 99283

== ENCOUNTER 2022-12-13 22:18 | Emergency (ER) | payer BC, SELFPAY ==
[2022-12-13 22:19] VITALS: BP 117/71; PULSE 89; RESP 17; TEMP 36.6; O2SAT 98; BMI 23.1
[2022-12-14] VITALS (7 sets, daily range): BP systolic 108–141; BP diastolic 63–82; PULSE 62–79; RESP 16–18; TEMP 36.6–36.8; O2SAT 98–100
--- NOTE | 2022-12-14 01:11 | CT_ITS ---
PROCEDURE INFORMATION: Exam: CT Abdomen And Pelvis With Contrast Exam date and time: 12/14/2022 3:27 AM Age: 57 years old Clinical indication: Abdominal pain; Localized; Right upper quadrant (ruq); Additional info: Abd pain TECHNIQUE: Imaging protocol: Computed tomography of the abdomen and pelvis with contrast. Radiation optimization: All CT scans at this facility use at least one of these dose optimization techniques: automated exposure control; mA and/or kV adjustment per patient size (includes targeted exams where dose is matched to clinical indication); or iterative reconstruction. Contrast material: ISOVUE; Contrast volume: 75 ml; Contrast route: IV; REPORTING DATA: Count of CT and Cardiac NM exams in prior 12 months: This patient has received 0 known CTs and 0 known cardiac nuclear medicine studies in the 12 months prior to the current study. COMPARISON: CR XR ACUTE ABDOMEN SERIES 11/26/2022 8:22 PM FINDINGS: Liver: Normal. No mass. Gallbladder and bile ducts: Normal. No calcified stones. No ductal dilation. Pancreas: Normal. No ductal dilation. Spleen: Normal. No splenomegaly. Adrenal glands: Normal. No mass. Kidneys and ureters: Normal. No hydronephrosis. Stomach and bowel: Unremarkable. No obstruction. No mucosal thickening. Appendix: No evidence of appendicitis. Intraperitoneal space: Unremarkable. No free air. No significant fluid collection. Vasculature: Unremarkable. No abdominal aortic aneurysm. Lymph nodes: Unremarkable. No enlarged lymph nodes. Urinary bladder: Unremarkable as visualized. Reproductive: Unremarkable as visualized. Bones/joints: Unremarkable. No acute fracture. Soft tissues: Unremarkable. IMPRESSION: No acute findings.
[2022-12-14 01:29] LABS: Basophils % 0.2 % (0.1-2.0); Eosinophils # 0.2 K/mm3 (0.0-0.4); Eosinophils % 4.9 % (0.1-12.0); Hematocrit 43.7 % (42.0-52.0); Hemoglobin 14.3 g/dL (14.1-18.0); Lymphocytes # 0.7 K/mm3 (0.7-4.5); Lymphocytes % 14.5 % (10-50); Mean Corpuscular HGB Conc 32.6 g/dL (31.8-35.4); Mean Corpuscular Volume 92.2 fl (80-94); Mean Platelet Volume 8.1 fl (7.4-10.4); Monocytes # 0.3 K/mm3 (0.1-1.0); Monocytes % 6.8 % (1.7-9.3); Neutrophils # 3.5 K/mm3 (1.8-7.8); Neutrophils % 73.7 % (37.0-80.0); Platelet Count 181 K/mm3 (142-424); Red Blood Count 4.75 M/mm3 (4.60-6.20); Red Cell Distribution Width 13.2 % (11.5-17.5); White Blood Count 4.8 K/mm3 (4.8-10.8)
[2022-12-14 01:31] LABS: Coronavirus 19, PCR Not Detected (NotDetected); Influenza A, PCR Not Detected (NotDetected); Influenza B, PCR Not Detected (NotDetected)
[2022-12-14 01:35] LABS: Alanine Aminotransferase 27 U/L (12-78); Albumin Level 4.1 g/dl (3.5-5.0); Albumin/Globulin Ratio 1.2 (1.1-1.8); Alkaline Phosphatase 95 U/L (38-126); Amylase 75 U/L (30-110); Aspartate Amino Transferase 33 U/L (17-59); Blood Urea Nitrogen 12 mg/dl (9-20); Calcium 8.5 mg/dl (8.4-10.2); Carbon Dioxide 29 mmol/L (22.0-30.0); Chloride 100 mmol/L (98-107); Creatinine Clearance Estimated 132 mL/min (50-200); Estimated Glomerular Filt Rate 117 ml/min (>60); GFR (African American) 141 ML/MIN (>60); Globulin 3.5 g/dL (1.3-3.2); Glucose 102 mg/dl (74-100); Lipase 80 U/L (23-300); Sodium 140 mmol/L (136-145); Total Protein,Serum 7.6 g/dl (6.3-8.2)
[2022-12-14 03:17] LABS: Microscopic, Urine URINE MICROSCOPIC (MICROSCOPIC)
[2022-12-14 03:26] LABS: Appearance,Urine CLEAR (Clear); Blood, Urine Negative (Negative); Color,Urine DK YELLOW (Yellow); Glucose,Urine (UA) Negative (Negative); Ketones,Urine Negative (Negative); Leukocyte Esterase,Urine Negative (Negative); Nitrate,Urine Negative (Negative); Protein,Urine 1+ (Negative); Specific Gravity, Urine >= 1.030 (1.005-1.030)
[2022-12-14 03:27] LABS: Bilirubin,Urine Negative (Negative)
--- NOTE | 2022-12-14 03:29 | HMH.EDABDPAI ---
Discharge Plan Disposition Patient Disposition: Home, Self-Care Condition: Good Prescriptions Prescriptions: New pantoprazole [Protonix] 40 mg tablet,delayed release (DR/EC) 40 mg PO HS 28 Days Qty: 28 0RF Referrals Follow up/Referrals: Clarita Schmidt PA [Primary Care Provider] - See instructions Clinical Impressions Clinical Impression: Abdominal pain Stand Alone Forms Stand Alone Forms: Work/School Release Instructions Patient Instructions: DI for Acute Abdominal Pain Discharge ED Provider: Leonardo (ED)Tom Abdominal Pain HPI General Chief Complaint: Abdominal Pain Stated Complaint: abd/back pain, bilateral hand numbness Time Seen by Provider: 12/14/22 02:00 Mode of Arrival: Ambulatory Source of Information: Patient and Medical Record Limitations: No Limitations Description of Symptoms (Recalled from ER Triage Doc. by RN): 57 M presents from home with epigastric pain and bilateral flank pain. Patient states other family members in his home are sick, and experiencing same symptoms. Denies nausea/vomiting/diarrhea, fever, or chills. Patient states his hands feel funny, but this is not a new issue as he works with his hands alot and they're just getting old. History of Present Illness HPI narrative: pt with upper abd pain inc over the last week MD complaint: abdominal pain Onset (ago): day(s) Consistency: intermittent Location: epigastric Severity: moderate Associated symptoms: denies other symptoms Related Data Previous Rx's Medication Instructions Recorded pantoprazole 40 mg tablet,delayed 40 mg PO HS 4 weeks #28 tabs 12/14/22 release (Protonix) Allergies Allergy/AdvReac Type Severity Reaction Status Date / Time acetaminophen [From TYLENOL] Allergy Intermediate I-HIVES Verified 05/16/22 13:04 codeine [CODEINE] Allergy Unknown I-HIVES Verified 05/16/22 13:04 [facility] Disclaimer: The information contained in this section may have been updated after the patient was seen, as this information can be updated by other users. Social History Smoking Status: Former smoker alcohol intake: current current occupational status: employed Travel in the last 8 weeks: None ROS Obtained: Yes All systems reviewed & no additional complaints except as documented Physical Exam General General appearance: alert Head Head exam: normocephalic Eye Eye exam: Present PERRL and EOMI ENT ENT exam: Present mucous membranes moist Neck Neck exam: Present trachea midline Respiratory Respiratory exam: Absent respiratory distress Cardiovascular Cardiovascular exam: Present regular rate and systolic murmur Abdominal Exam Abdominal exam: Present soft, tenderness and Hathaway's sign; Absent guarding, rebound or rigidity Abdominal tenderness: Present RUQ, epigastrium and moderate Extremities Exam Extremities exam: Present full ROM Neurological Exam Neurological exam: Present alert, oriented X3 and CN II-XII intact; Absent motor sensory deficit Psychiatric Psychiatric exam: Present normal affect Skin Skin exam: Absent rash Medical Decision Making Medical Records Medical records reviewed: Yes I reviewed the patient's medical records. [place] Inquiry Pt receiving controlled substance: No Vital Signs: 12/13/22 22:19 12/14/22 01:04 12/14/22 01:30 Temperature 97.9 F Temperature Source Oral Pulse Rate 77 62 Pulse Rate [Left] 89 Respiratory Rate 17 Blood Pressure 141/82 H 114/69 Blood Pressure [Right Arm] 117/71 Blood Pressure Mean [Right Arm] 86 Blood Pressure Source Blood Pressure Source [Right Arm] Automatic Cuff Blood Pressure Position Blood Pressure Position [Right Arm] Sitting 02 Sat by Pulse Oximetry 98 99 100 Oxygen Delivery Method Room Air Room Air Room Air 12/14/22 02:00 12/14/22 02:30 12/14/22 03:00 Temperature Temperature Source Pulse Rate 64 64 72 Pulse Rate [Left] Respirat
[2022-12-14 03:39] LABS: Bacteria,Urine 1+ /lpf; Mucus,Urine 1+ /lpf; WBC,Urine Occasional #/hpf (0-3)
--- NOTE | 2022-12-14 04:39 | PC.NURSE ---
Called radiology to request that she speak with virtual radiology regarding the wait time for the patient results. Updated patient and informed them that radiology has been contacted and we are working to get more information.
== END 2022-12-14 06:38 | disposition home or self-care (01) ==
PROVIDERS: Emergency Provider Emergency Medicine; PCP Physician Assistant
DX: R10.13 Epigastric pain (principal); Z87.891 Personal history of nicotine dependence
CPT/HCPCS: 74177; 80053; 81001; 82150; 83690; 85025; 87636; 96361; 96374; 96375; 99284; 99285; C9803; J2405; Q9967; U0003; U0005

== ENCOUNTER → 2022-12-17 10:48 | Outpatient (CLI) | payer BC, SELFPAY ==
--- NOTE | 2022-12-17 10:53 | XR_ITS ---
FINAL REPORT TECHNIQUE: 5 views CLINICAL HISTORY: Lt sided LBP x 1 month, NKT. FINDINGS: There is no fracture present. There is no malalignment. There are no significant degenerative changes. IMPRESSION: No acute process. Reviewed, Interpreted and Dictated by Zheng Quinones MD Transcribed by Lara Sun Authenticated and [facility]
== END ==
LOC: RAD 10:48
PROVIDERS: PCP Physician Assistant; Visit Provider Physician Assistant
DX: M54.50 Low back pain, unspecified (principal)
CPT/HCPCS: 72110

== ENCOUNTER 2023-07-23 12:37 | Emergency (ER) | payer BC, SELFPAY ==
[2023-07-23 12:37] VITALS: BP 147/76; PULSE 108; RESP 18; TEMP 38.5; O2SAT 98; BMI 22.8
[2023-07-23 13:19] LABS: UTC Influenza A Antigen Negative (Negative); UTC Influenza B Antigen Negative (Negative)
--- NOTE | 2023-07-23 13:33 | ED_ITS ---
Discharge Plan Disposition Patient Disposition: Home, Self-Care Prescriptions Prescriptions: New azithromycin [Zithromax] 250 mg tablet 250 mg PO UD DOSE PK Qty: 6 0RF Rx Instructions: Take two (2) tablets today, then one (1) tablet days #2 thru #5 benzonatate [benzonatate] 100 mg capsule 100 mg PO TIDP PRN (Reason: Cough) Qty: 30 0RF methylprednisolone 4 mg Tablets,Dose Pack 4 mg PO DIRECTED 6 Days Qty: 21 0RF Rx Instructions: Take 1 pack as directed for 6 days Referrals Follow up/Referrals: Clarita Schmidt PA [Primary Care Provider] - See instructions Activity Restrictions/Add. Instructions Additional Instructions/Restrictions: Drink plenty of fluids. Take tylenol or ibuprofen for pain or fever. Take the medications as directed. Follow up with your regular doctor. GO TO THE ER FOR ANY WORSENING SYMPTOMS Don't start the oral steroids until tomorrow, since you had the shot here today. Stand Alone Forms Stand Alone Forms: Work/School Release Instructions Patient Instructions: DI for Acute Bronchitis, DI for Viral Syndrome Discharge ED Provider: Grant Liang [facility] General Stated complaint: body aches, fever Mode of Arrival: Ambulatory Source of Information: Patient Limitations: No Limitations Time Seen by Provider: 07/23/23 13:27 Description of Symptoms (Recalled from Triage Doc. by RN): Pt's symptoms are fever, dizzy, and body aches. HEENT Symptoms (Recalled from RN notes): Yes Resp Symptoms (Recalled from RN notes): No Skin Symptoms (Recalled from RN notes): No MS Symptoms (Recalled from RN notes): No Functional Status (Recalled from RN notes): n/a History of Present Illness Provider Complaint: He states that for the past 1 day he has had chest and sinus congestion. He has also had a fever and felt very bad. Related Data Previous Rx's Medication Instructions Recorded azithromycin 250 mg tablet 250 mg PO UD DOSE PK #6 tabs 07/23/23 (Zithromax) benzonatate 100 mg capsule 100 mg PO TIDP PRN Cough #30 caps 07/23/23 methylprednisolone 4 mg tablets in 4 mg PO DIRECTED 6 days #21 tabs 07/23/23 a dose pack Allergies Allergy/AdvReac Type Severity Reaction Status Date / Time acetaminophen [From TYLENOL] Allergy Intermediate I-HIVES Verified 07/23/23 13:24 codeine [CODEINE] Allergy Unknown I-HIVES Verified 07/23/23 13:24 Worker's Comp Is this a Worker's Comp case?: No [facility] Disclaimer: The information contained in this section may have been updated after the patient was seen, as this information can be updated by other users. Surgical History H/O toe surgery Lipoma States he had a lipoma removed from his left side years ago. Social History Smoking Status: Former smoker tobacco type: smokeless tobacco alcohol intake: current current occupational status: employed Travel in the last 8 weeks: None ROS Obtained: Yes All systems reviewed & no additional complaints except as documented Constitutional Constitutional: Reports chills and Reports fever(s) Eyes Eyes: Denies eye discharge ENT Ears, Nose, Mouth, and Throat: Reports as per HPI Cardiovascular Cardiovascular: Denies chest pain Respiratory Respiratory: Denies shortness of breath, Reports chest congestion, Reports cough, Denies stridor and Denies wheezing Gastrointestinal Gastrointestingal: Reports nausea; Denies abdominal pain, constipation, cramping, diarrhea or vomiting Musculoskeletal Musculoskeletal: Denies arthralgias Integumentary/Breasts Skin/Breast: Denies rash Neurologic Neurologic: Denies paresthesias Allergic/Immunologic Allergic/Immunologic: Denies wheezing Physical Exam General General appearance: alert and in no apparent distress Eye Eye exam: Present normal appearance, PERRL and EOMI ENT ENT exam: Present mucous membranes moist and normal external ear exam Expanded ENT Exam External ear exam: Present normal external inspection TM/Canal exam: Bilateral TM: erythema and bulging Nose exam: Absent sinus tenderness Nasal speculum exam: Bilateral: normal Mouth exam: Present normal external inspection; Absent drooling Teeth exam: Present normal inspection Throat exam: Present tonsillar erythema and tonsillomegaly Neck Neck exam: Present normal inspection, full ROM and trachea midline; Absent tenderness, lymphadenopathy or thyromegaly Chest Chest inspection: Present normal inspection and symmetric chest wall rise; Absent tenderness or rash Respiratory Respiratory exam: Present normal lung sounds bilaterally; Absent respiratory distress, wheezes, stridor or accessory muscle use Cardiovascular Cardiovascular exam: Present regular rate, normal rhythm and normal heart sounds Abdominal Exam Abdominal exam: Present soft; Absent distention, tenderness, guarding, rebound or rigidity Extremities Exam Extremities exam: Present normal inspection, full ROM and normal capillary refill; Absent tenderness or calf tenderness Back Exam Back exam: Present normal inspection and full ROM; Absent tenderness Neurological Exam Neurological exam: Present alert and oriented X3 Psychiatric Psychiatric exam: Present normal affect and normal mood Skin Skin exam: Present warm, dry, intact and normal color Lymphatic Lymphatic Findings: no adenopathy Medical Decision Making Medical Records Medical records reviewed: No I reviewed the patient's medical records. [place] Inquiry Pt receiving controlled substance: No Vital Signs: 07/23/23 12:37 Temperature 101.3 F H Temperature Source Oral Pulse Rate [Right Radial] 108 H Respiratory Rate 18 Blood Pressure [Right Arm] 147/76 H Blood Pressure Mean [Right Arm] 99 Blood Pressure Source [Right Arm] Automatic Cuff Blood Pressure Position [Right Arm] Sitting 02 Sat by Pulse Oximetry 98 Oxygen Delivery Method Room Air Lab Data Lab results reviewed: Yes I reviewed the patient's lab results. Lab Results 07/23/23 13:14: Influenza Type A Ag Negative, Influenza Type B Ag Negative
[2023-07-23] MEDS: DEXAMETHASONE 4MG/ML 1ML VIAL 8 MG IM (13:52)
[2023-07-23] MEDS: cefTRIAXone 1GM VIAL 1 GM IM (13:52)
[2023-07-23] MEDS: LIDOCAINE 1% 5ML PF VIAL IM (13:52)
[2023-07-23 14:27] VITALS: BP 147/76; PULSE 108; RESP 18; TEMP 38; O2SAT 98
== END 2023-07-23 14:27 | disposition home or self-care (01) ==
PROVIDERS: Emergency Provider Nurse Practitioner Family; PCP Physician Assistant
DX: J20.9 Acute bronchitis, unspecified (principal); R50.9 Fever, unspecified; R05.9 Cough, unspecified; R09.89 Other specified symptoms and signs involving the circulatory and respiratory systems; R09.81 Nasal congestion; B34.9 Viral infection, unspecified
CPT/HCPCS: 87635; 87804; 96372; 99212; 99214; G0463; J0696

== ENCOUNTER 2023-10-02 07:44 | Outpatient (CLI) | payer BC, SELFPAY ==
[2023-10-02 08:30] VITALS: PULSE 64; PULSE 68
[2023-10-02] MEDS: ALBUTEROL 0.083% 2.5 MG/3 ML NEB IH (08:30)
== END 2023-10-02 23:59 ==
LOC: RT 07:44
PROVIDERS: PCP Physician Assistant; Visit Provider Physician Assistant
DX: R06.02 Shortness of breath (principal); R07.9 Chest pain, unspecified; Z87.891 Personal history of nicotine dependence
CPT/HCPCS: 94060; 94640; 94726; 94729

== ENCOUNTER 2023-10-09 14:53 | Outpatient (CLI) | payer BC, SELFPAY ==
--- NOTE | 2023-10-09 14:54 | CA_ITS ---
APPROVED REPORT EXAM: Comprehensive 2D, Doppler, and color-flow Echocardiogram Air Intelligence Officer: Aleksandra Godfrey RVT Ht: 6 ft 1 in Wt: 174lbs BSA: 2.03 BP: 142/83 mmHg Indications: SOA,CP,EX SMOKER 2D Dimensions LA Volume 42.90 mL LA Volume Index 21.13 mL/m2 (M/F) 16-34 M-Mode Dimensions RVDd 1.93 cm (0.9-2.6) LA Diam 3.30 cm (1.9-4.0) LVDd 5.33 cm (3.5-5.7) LVDs 3.54 cm (3.5-5.7) IVSd 0.50 cm (0.6-1.1) PWd 0.47 cm (0.6-1.1) EF (Teich) 61.90% FS 33.60% EDV (Teich) 137.10 mL TAPSE 2.17 (<1.7) ESV (Teich) 52.30 mL LV Diastology E Decel Time 223 (160-240 msec) E/A Ratio 1.0 Aortic Valve HIRAM Index 1.09 cm2/m2 AoV Peak Joseph. 157.0 (50-130 cm/s) AO Peak GR. 9.90 mmHg AO Mean GR. 5.30 (<5 mmHg) AO VTI 31.9 (18-25 cm) HIRAM (VTI) 2.27 (2.5-4.5 cm2) Mitral Valve MV E Max Joseph. 83.0 (40-130 cm/s) MV A Velocity 83.0 (40-130 cm/s) E/A Ratio 1.00 MV PHT 65.0 ms Pulmonary Valve PV Peak Velocity 65.0 (50-150 cm/s) Tricuspid Valve TR P. Velocity 236.00 cm/s RAP Estimate 10.00 mmHg RVSP 32.40 mmHg Left Ventricle The left ventricle is normal size. The left ventricular systolic function is normal. The left ventricular ejection fraction is within the normal range. There is normal left ventricular wall thickness. There is normal LV segmental wall motion. The left ventricular diastolic function is normal. LVEF is 55%. Right Ventricle The right ventricle is normal size. The right ventricular systolic function is normal. Atria The left atrium size is normal. The right atrium size is normal. There is no Doppler evidence of interatrial shunt. Aortic Valve The aortic valve is mildly thickened. There is no aortic valvular stenosis. No aortic regurgitation is present. Mitral Valve The mitral valve is normal in structure. No evidence of mitral valve stenosis. Trace mitral regurgitation. Tricuspid Valve The tricuspid valve leaflets are thin and pliable. Mild tricuspid regurgitation. RVSP is normal. Pulmonic Valve The pulmonary valve is normal in structure. Trace pulmonic regurgitation. Great Vessels The aortic root is normal in size. The ascending aorta is not well-visualized. IVC is normal in size and collapses >50% with inspiration. Pericardium There is no pericardial effusion. Other Information Study Quality: Fair Conclusion Normal biventricular systolic function. Mild TR. Electronically signed by : Katarzyna Rodriguez MD 10/12/2023 01:12:49
== END 2023-10-09 23:59 ==
LOC: RT 14:54
PROVIDERS: PCP Physician Assistant; Visit Provider Nurse Practitioner Family
DX: R07.9 Chest pain, unspecified (principal); R06.02 Shortness of breath
CPT/HCPCS: 93306

== ENCOUNTER 2023-11-08 07:28 | Outpatient (CLI) | payer BC, SELFPAY ==
--- NOTE | 2023-11-08 07:29 | CT_ITS ---
FINAL REPORT TECHNIQUE: Axial CT images were performed from the lung apices through the upper abdomen. Coronal and sagittal reformats were submitted. This study was performed with techniques to keep radiation doses as low as reasonably achievable (ALARA). Individualized dose reduction techniques using automated exposure control or adjustment of mA and/or kV according to the patient's size were employed. CLINICAL HISTORY: dyspena on exertion, tob use COMPARISON: None FINDINGS: Mild changes of emphysema are present as well as mild scarring bilaterally. Multiple calcified granulomas are present. There is no axillary adenopathy. There is no hilar or mediastinal mass or adenopathy. Heart size is normal. There is no pericardial or pleural effusion. Limited images of the upper abdomen are unremarkable. There is a 2 mm right lower lobe nodule best seen on image #64, as well as a 3 mm left lower lobe nodule, best seen on image #74. There is also a 4 mm left lower lobe nodule best seen on image #61. There are no dominant masses or suspicious nodules, although there are multiple other less than 5 mm in size noncalcified pulmonary nodules present. IMPRESSION: Multiple noncalcified less than 5 mm in size nonspecific nodules. Would recommend follow-up chest CT in 12 months for further evaluation. Mild changes of emphysema and scarring bilaterally. Reviewed, Interpreted and Dictated by Cameron Rangel III, MD Transcribed by Margo Hood Authenticated and [facility]
== END 2023-11-08 23:59 | disposition home or self-care (01) ==
LOC: RAD 07:29
PROVIDERS: PCP Physician Assistant; Visit Provider Physician Assistant
DX: R06.09 Other forms of dyspnea (principal); Z87.891 Personal history of nicotine dependence
CPT/HCPCS: 71250

== ENCOUNTER 2023-11-18 14:39 | Emergency (ER) | payer BC, SELFPAY ==
[2023-11-18 14:45] VITALS: BP 129/83; PULSE 71; RESP 18; TEMP 36.8; O2SAT 98; BMI 19.8
--- NOTE | 2023-11-18 15:04 | EXP.UTC ---
Discharge Plan Disposition Patient Disposition: Home, Self-Care Condition: Good Prescriptions Prescriptions: New methocarbamol 500 mg tablet 500 mg PO TID PRN (Reason: muscle spasm) Qty: 15 0RF Referrals Follow up/Referrals: Clarita Schmidt PA [Primary Care Provider] - See instructions Activity Restrictions/Add. Instructions Additional Instructions/Restrictions: Continue to take ibuprofen as prescribed Take Methocarbamol as prescribed *Not additional anti-inflammatory like motrin, aleve, advil with the above amount of ibuprofen. You can still take Tylenol every 4 hours as needed if you need something else for pain * moist heat every 20 minutes 3-4 times a day to affected area *Muscle relaxer every 8 hours as needed for muscle spasms but remember, it WILL cause drowsiness You cannot take it and drive, operate machinery or care for small children. *Keep this area active, no movement leads to more stiffness, However take it easy and avoid heavy lifting pushing or pulling *Follow up with you family doctor if no improvement for further treatment Clinical Impressions Clinical Impression: Low back pain Stand Alone Forms Stand Alone Forms: Work/School Release Instructions Patient Instructions: Low Back Pain, Methocarbamol Discharge ED Provider: Nory Wilson [facility] General Stated complaint: upper body and lower back pain Mode of Arrival: Ambulatory Source of Information: Patient Limitations: No Limitations Time Seen by Provider: 11/18/23 15:04 Description of Symptoms (Recalled from Triage Doc. by RN): PATIENT C/O LOWER BACK PAIN, BODY ACHES, AND FEELING TIRED ALL OF THE TIME. HE STATES SYMPTOMS HAVE BEEN GOING ON FOR MONTHS HEENT Symptoms (Recalled from RN notes): No Resp Symptoms (Recalled from RN notes): No Skin Symptoms (Recalled from RN notes): No MS Symptoms (Recalled from RN notes): Yes Functional Status (Recalled from RN notes): WNL History of Present Illness Provider Complaint: Patient states that he has been having pain in his lower back for months that is worse at times, States he does alot of heavy lifting most of the time States that the pain doesnt really radiate anywhere and seems to be worse with movement or when he is sitting for long periods of time so today he came in to get it checked Denies loss of control of bowel or bladder Related Data Previous Rx's Medication Instructions Recorded methocarbamol 500 mg tablet 500 mg PO TID PRN muscle spasm #15 11/18/23 tabs Allergies Allergy/AdvReac Type Severity Reaction Status Date / Time acetaminophen [From TYLENOL] Allergy Intermediate I-HIVES Verified 09/26/23 14:46 codeine [CODEINE] Allergy Unknown I-HIVES Verified 09/26/23 14:46 Worker's Comp Is this a Worker's Comp case?: No [facility] Disclaimer: The information contained in this section may have been updated after the patient was seen, as this information can be updated by other users. Medical History (Updated 11/18/23 @ 16:49 by Nory Wilson APRN) Depression Anxiety Surgical History H/O toe surgery Lipoma Family History Other No significant family history Social History Smoking Status: Former smoker tobacco type: smokeless tobacco alcohol intake: current alcohol intake frequency: holidays/special occasions only current occupational status: employed Travel in the last 8 weeks: None ROS Obtained: Yes All systems reviewed & no additional complaints except as documented and Yes Systems reviewed as appropriate & no additional complaints except as documented Constitutional Constitutional: Reports system reviewed and no additional complaints, except as documented, Reports as per HPI and Denies fever(s) ENT Ears, Nose, Mouth, and Throat: Reports system reviewed and no additional complaints, except as documented and Reports as per HPI Cardiovascular Cardiovascular: Reports system reviewed and no additional complaints, except as documented and Reports as per HPI Respiratory Respiratory: Reports system reviewed and no additional complaints, except as documented and Reports as per HPI Gastrointestinal Gastrointestingal: Reports system reviewed and no additional complaints, except as documented and as per HPI; Denies abdominal pain Genitourinary Male Genitourinary: Reports system reviewed and no additional complaints, except as documented, Reports as per HPI, Denies difficulty urinating and Denies hematuria Musculoskeletal Musculoskeletal: Reports system reviewed and no additional complaints, except as documented, Reports as per HPI and Reports back pain (low back pain on and off for months) Physical Exam General General appearance: alert and in no apparent distress ENT ENT exam: Present mucous membranes moist Respiratory Respiratory exam: Present normal lung sounds bilaterally; Absent respiratory distress or wheezes Cardiovascular Cardiovascular exam: Present regular rate, normal rhythm and normal heart sounds Back Exam Back exam: Present tenderness Back 1 view image: 1. reports achy like feeling and feeling of spasms on and off for months denies radiation denies loss of control of bowel or bladder Neurological Exam Neurological exam: Present alert, oriented X3 and normal gait Medical Decision Making [place] Inquiry Pt receiving controlled substance: No [place] was queried for this patient: No Vital Signs: 11/18/23 14:45 Temperature 98.2 F Temperature Source Oral Pulse Rate [Left Brachial] 71 Respiratory Rate 18 Blood Pressure [Left Arm] 129/83 Blood Pressure Mean [Left Arm] 98 Blood Pressure Source [Left Arm] Automatic Cuff Blood Pressure Position [Left Arm] Sitting 02 Sat by Pulse Oximetry 98 Oxygen Delivery Method Room Air Lab Data Lab results reviewed: Yes I reviewed the patient's lab results. Radiology Data #1: Image(s): L-Spine Image Reviewed: Yes I have reviewed radiologist's interpretation no acute process
--- NOTE | 2023-11-18 15:07 | XR_ITS ---
FINAL REPORT TECHNIQUE: 5 views CLINICAL HISTORY: low back pain FINDINGS: There is no fracture present. There is no malalignment. There are no significant degenerative changes. IMPRESSION: No acute process. Reviewed, Interpreted and Dictated by Zheng Quinones MD Transcribed by Lara Sun Authenticated and . [facility]
[2023-11-18 15:16] LABS: Apearance,Urine Clear (Clear); Bilirubin,Urine Negative (Negative); Blood, Urine Negative (Negative); Color,Urine Yellow (Yellow); Glucose,Urine (UA) Negative (Negative); Ketones,Urine Negative (Negative); PH,Urine 6.5 (5.0-8.5); Protein,Urine Negative (Negative); Specific Gravity, Urine 1.025 (1.005-1.030); UTC Leukocyte Esterase,Urine Negative (Negative); UTC Nitrate,Urine Negative (Negative); Urobilinogen,Urine 0.2 EU/dl (0.2)
[2023-11-18 16:52] VITALS: BP 129/83; PULSE 71; RESP 18; TEMP 36.8; O2SAT 98
== END 2023-11-18 16:54 | disposition home or self-care (01) ==
PROVIDERS: Emergency Provider Nurse Practitioner; PCP Physician Assistant
DX: M54.50 Low back pain, unspecified (principal)
CPT/HCPCS: 72110; 81003; 99212; 99214; G0463

== ENCOUNTER 2023-11-21 11:48 | Outpatient (CLI) | payer BC, SELFPAY ==
[2023-11-21 12:15] LABS: Basophils # 0.1 K/mm3 (0-0.2); Basophils % 1.2 % (0.1-2.0); Eosinophils # 0.2 K/mm3 (0.0-0.4); Eosinophils % 2.8 % (0.1-12.0); Hematocrit 46.1 % (42.0-52.0); Hemoglobin 14.9 g/dL (14.1-18.0); Lymphocytes # 1.5 K/mm3 (0.7-4.5); Mean Corpuscular HGB Conc 32.3 g/dL (31.8-35.4); Mean Platelet Volume 7.9 fl (7.4-10.4); Monocytes # 0.4 K/mm3 (0.1-1.0); Monocytes % 7.6 % (1.7-9.3); Neutrophils # 3.6 K/mm3 (1.8-7.8); Neutrophils % 62.4 % (37.0-80.0); Platelet Count 198 K/mm3 (142-424); Red Cell Distribution Width 13.9 % (11.5-17.5); White Blood Count 5.8 K/mm3 (4.8-10.8)
[2023-11-21 12:38] LABS: Alanine Aminotransferase 22 U/L (12-78); Albumin Level 4.1 g/dl (3.5-5.0); Albumin/Globulin Ratio 1.3 (1.1-1.8); Alkaline Phosphatase 72 U/L (38-126); Anion Gap 12.3 mEq/L (5-15); Aspartate Amino Transferase 25 U/L (17-59); Bilirubin,Total 0.8 mg/dl (0.2-1.3); Blood Urea Nitrogen 13 mg/dl (9-20); Calcium 9.1 mg/dl (8.4-10.2); Carbon Dioxide 30 mmol/L (22.0-30.0); Chloride 104 mmol/L (98-107); Cholesterol 190 mg/dl (140-200); Estimated Glomerular Filt Rate 100 ml/min (>60); GFR (African American) 121 ML/MIN (>60); Globulin 3.1 g/dL (1.3-3.2); Glucose 87 mg/dl (74-100); HDL Cholesterol 48 mg/dl (40-60); Potassium 4.3 mmoL/L (3.5-5.1); Sodium 142 mmol/L (136-145); Total Protein,Serum 7.2 g/dl (6.3-8.2); Triglycerides 125 mg/dl (30-150); VLDL Cholesterol 25 mg/dL (0-40)
[2023-11-21 12:48] LABS: Direct LDL Cholesterol 104.66 mg/dL (100-129)
[2023-11-21 13:08] LABS: Prostate Specific Ag Screen 0.8 ng/ml (0.0-4.0); Thyroid Stimulating Hormone 1.67 uIU/mL (0.465-4.68)
[2023-11-21 14:18] LABS: Hemoglobin A1C 4.7 % (4.0-6.0)
[2023-11-22 08:24] LABS: Testosterone,Total 524 ng/dL (264-916)
== END 2023-11-21 23:59 | disposition home or self-care (01) ==
LOC: LAB 11:49
PROVIDERS: PCP Physician Assistant; Visit Provider Nurse Practitioner Family
DX: N52.9 Male erectile dysfunction, unspecified (principal); G47.33 Obstructive sleep apnea (adult) (pediatric); R06.09 Other forms of dyspnea; R05.8 Other specified cough; R09.81 Nasal congestion; R91.1 Solitary pulmonary nodule; J44.9 Chronic obstructive pulmonary disease, unspecified; J43.9 Emphysema, unspecified; Z79.899 Other long term (current) drug therapy
CPT/HCPCS: 36415; 80053; 80061; 82306; 83036; 84403; 84443; 85025; G0103

== ENCOUNTER 2023-12-04 07:05 | Outpatient (CLI) | payer BC, SELFPAY ==
--- NOTE | 2023-12-04 07:06 | CT_ITS ---
FINAL REPORT TECHNIQUE: Axial images through the abdomen and pelvis were performed without contrast. This study was performed with techniques to keep radiation doses as low as reasonably achievable, (ALARA). Individualized dose reduction techniques using automated exposure control or adjustment of mA and/or kV according to the patient's size were employed. CLINICAL HISTORY: Abd pain, R inguinal COMPARISON: 12/14/2022 FINDINGS: ABDOMEN: The lung bases are clear. The heart size is normal. Limited images of the liver are unremarkable. The spleen is normal. No adrenal mass is identified. The aorta is normal in caliber. There is no significant free fluid or adenopathy. There is a less than 3 mm nonobstructing right renal stone. There is no hydronephrosis. There is a small right inguinal hernia containing fat. PELVIS: Small foreign body is seen in the right anterior pelvis subcutaneous tissues which appears stable. The appendix is not identified. The urinary bladder is unremarkable. There is no significant free fluid or adenopathy. IMPRESSION: Small right inguinal hernia containing fat. Nonobstructing right renal stone. Stable foreign body in the anterior pelvis subcutaneous tissues. Reviewed, Interpreted and Dictated by Cameron Rangel III, MD Transcribed by Mary Villegas Authenticated and [facility]
== END 2023-12-04 23:59 | disposition home or self-care (01) ==
LOC: RAD 07:06
PROVIDERS: PCP Nurse Practitioner Family; Visit Provider Nurse Practitioner Family
DX: K40.90 Unilateral inguinal hernia, without obstruction or gangrene, not specified as recurrent (principal)
CPT/HCPCS: 74176

== ENCOUNTER 2023-12-05 07:14 | Outpatient (CLI) | payer BC, SELFPAY ==
--- NOTE | 2023-12-05 07:14 | NM_ITS ---
APPROVED REPORT Exam: Nuclear Stress Test Indication: chest pain..soa Patient Location: Outpatient Stress Tech: Abigail Wright [place] Tech:GOMEZ Carlton RT(R)(N) Ht: 6 ft 1 in Wt: 170 lbs HR: 72 bpm BP: 115/82 mmHg BSA: 2.01 m2 Rhythm: NSR TID: 1.13 BMI: 22.4 History: chest pain..soa Procedure: Patient exercised on Mitch protocol 10:30 minutes and sec, resting heart rate 72 bpm, resting blood pressure 115/82 mmHg, with exercise maximum heart rate achived was 148 bpm which is 85 % of the maximum predicted heart rate and blood pressure was 170/84 mmHg. Test was stopped due to fatigue..sob. Patient has average exercise capacity, achieved 12.8 METs of workload on treadmill, the blood pressure response to exercise was normal . Cardiac Stress and Resting SPECT Images: Cardiac Stress and Resting SPECT images were obtained using technetium 99m Myoview 32.9 mCi stress and 10.55 mCi at rest. Technically difficult study due to soft tissue and diaphragmatic overlap with cardiac borders in the raw images. Resting and stress imaging in supine position demonstrate a large sized, moderate, fixed perfusion defect in the inferior LV wall. This is no longer visualized with prone stress imaging. Findings are suggestive of diaphragmatic attenuation, but true perfusion defect cannot be entirely ruled out. Gated imaging demonstrates mild reduction in global and regional LV systolic function. LVEF is calculated at 45%. The LVEF may be inaccurate in the setting of ectopy during image acquisition. Conclusion: Large sized, moderate, fixed perfusion defect in the inferior LV wall. This is no longer visualized with prone stress imaging. Findings are suggestive of diaphragmatic attenuation, but true perfusion defect cannot be entirely ruled out. Gated imaging demonstrates mild reduction in global and regional LV systolic function. LVEF is calculated at 45%. The LVEF may be inaccurate in the setting of ectopy during image acquisition. In the setting of technically difficult study with possible diaphragmatic attenuation vs. true perfusion defect, as well as reduced calculated LVEF in this nuclear stress test, further evaluation with alternative modality (ie CCTA) is suggested. Electronically signed by : Katarzyna Rodriguez MD 12/08/2023 01:04:40
--- NOTE | 2023-12-05 10:07 | CA_ITS ---
APPROVED REPORT Exam: Exercise Treadmill Technologist: Abigail Rand, Ht: 6 ft 1 in Wt: 170 lbs BSA: 2.01 m2 HR: 75 bpm BP: 141/79 mmHg Rhythm: NSR Medical History Medications: MethcarbaMOL,,,,, Stress Test Details Test: Mitch HR Resting HR: 72 bpm Max Heart Rate (APMHR): 163 bpm Max HR Achieved: 148 bpm Target HR (85% APMHR): 139 bpm % of APMHR: 91 Recovery HR: 84 bpm HR response to stress: Normal HR response to stress BP Resting BP: 115.0/82.0 mmHg Max BP: 170.0/84.0 mmHg Recovery BP: 147.0/84.0 mmHg BP response to stress: Normal blood pressure response to stress. ECG Resting ECG: NSR, non-specific T-wave changes Stress EC.[address] depression Arrhythmia: Occasional PACs Recovery ECG: Return to baseline within 3 minutes of recovery Recovery Arrhythmia: None Clinical Exercise duration: 10:30 min Highest Stage Achieved: Exercise capacity: 12.8 METs Overall Exercise Capacity for Age: Average Stress ECG Conclusion The patient was able to exercise for a total of 10 minutes, 30 seconds. He achieved a total of 12.8 METS. He has average exercise capacity compared to age and sex matched peers. He has normal HR and BP response to exercise. Max HR: 148 % of PM: 91% Max BP: 170/64 METs:12.8 Test stopped due to: SOA Symptoms: No CP. Arrhythmias/Ectopy: Occasional PACs ST-T Changes: 0.[address] depression Conclusioin: Average exercise capacity. No ECG evidence of ischemia at peak stress. Myoview images reported separately. Test Summary REST . . . . . . . Sitting REST . . . . . . . Standing REST 04:00 0.0 0.0 72 . 115/ 82 . . Stage 1 01:00 10.0 1.7 92 . . . . Stage 1 02:00 10.0 1.7 100 . . . . Stage 1 03:00 10.0 1.7 97 . 154/ 84 . . Stage 2 01:00 12.0 2.5 105 . . . . Stage 2 02:00 12.0 2.5 113 . . . . Stage 2 03:00 12.0 2.5 113 . 158/ 82 . . Stage 3 01:00 14.0 3.4 126 . . . . Stage 3 02:00 14.0 3.4 134 . . . . Stage 3 03:00 14.0 3.4 138 . 170/ 84 . . Stage 4 01:00 16.0 4.2 144 . . . . Stage 4 01:30 16.0 4.2 148 . . . Stop exercise at 10:30 RECOVERY 01:00 0.0 0.0 121 . . . . RECOVERY 02:00 0.0 0.0 94 . . . . RECOVERY 03:00 0.0 0.0 85 . 161/ 75 . . RECOVERY 04:00 0.0 0.0 88 . 160/ 85 . . RECOVERY 05:00 0.0 0.0 84 . 147/ 84 . . RECOVERY 05:16 0.0 0.0 85 . 147/ 84 . . Electronically signed by : Katarzyna Rodriguez MD 12/08/2023 01:00:04
[2023-12-05] MEDS: SODIUM CHLORIDE 0.9% 10ML SYR (RAD ONLY) 10 ML IV ×2 (10:11)
[2023-12-05] MEDS: ISOTOPE MYOVIEW (PER STUDY) 1 DOSE IV (10:11)
== END 2023-12-05 23:59 | disposition home or self-care (01) ==
LOC: RAD 07:14
PROVIDERS: PCP Physician Assistant; Visit Provider Physician Assistant
DX: Z87.891 Personal history of nicotine dependence (principal); R06.02 Shortness of breath; R07.9 Chest pain, unspecified
CPT/HCPCS: 78452; 93017; 93018; A9502

== ENCOUNTER 2023-12-12 09:09 | Outpatient (CLI) | payer BC, SELFPAY ==
[2023-12-12] VITALS (8 sets, daily range): BP systolic 87–146; BP diastolic 50–86; PULSE 56–77; RESP 18; TEMP 36.5; O2SAT 99; BMI 22.5
--- NOTE | 2023-12-12 09:10 | CT_ITS ---
APPROVED REPORT Lead Military Analyst: CLINICAL INDICATION Chest Pain TECHNIQUE Image Acquisition: A 128 slice MDCT scanner ([employer] Cle[employer]a View) was used for data acquisition. A noncontrast coronary calcium scan was performed. A CT attenuation threshold of 130 Hounsfield units (HU) was used for the detection of calcium in contiguous voxels of 1 sq mm in area to be counted as individual lesions. Bolus tracking in the ascending aorta with a threshold of 180 HU was performed. Immediately afterwards, ECG synchronized cardiac CT was then performed from the cardiac base to apex using retrospective gating with ECG tube current modulation. A total of 85 mL of Isovue 370 mg/mL contrast medium was administered at 5 mL/sec followed by a saline flush using a biphasic injection protocol. A tube voltage of 120 KVp was used. The average heart rate at the time of acquisition was 48 bpm and regular. Image Reconstruction Transaxial images were reconstructed at 0.67 mm slide thickness. Data was reviewed interactively on an advanced workstation capable of 2 and 3-dimensional displays in all conventional reconstruction formats, including multiplanar reformations, maximum intensity projections, curved multiplanar reformations, and volume rendered reconstructions. When applicable, selected routine images describing the relevant coronary anatomy and pathology were saved and sent to PACS. Complications None Technical Quality Overall image quality was good. Coronary artery opacification was adequate. Total DLP (Dose-Length Product) is 2106.3 mGy-cm. The reported value represents the total of one or more individual components during the CT acquisition of this date and at this time, and as such, the same value may appear in more than one CT report depending on the interpreting/reporting physicians. COMPARISON None FINDINGS CT Coronary Calcium Scoring LMA (Left Main Artery) = 0 LAD (Left Anterior Descending) = 0 LCX (Left Coronary Circumflex) = 0 RCA (Right Coronary Artery) = 0 Total Calcium Score = 0 using the AJ-130 method. The interpretation of the calcium heart score is based on the following continuum*: 0 = no calcified plaque detected (risk of coronary artery disease is very low ??? less than 5%) 1-10 = calcium detected in extremely minimal levels (risk of coronary diseases is still low ??? less than 10%) 11-100 = mild levels of plaque detected with certainty (mild or minimal narrowing of heart arteries is likely) 101-400 = definite,at least moderate levels of plaque detected (relatively high risk of a heart attack within 3-5 years) >401-999 = extensive levels of plaque detected (high risk of heart attack, high levels of vascular disease are present, high likelihood of at least one significant coronary narrowing) *The calcium heart score quantifies the burden of coronary calcification/plaque in the coronary arteries. The calcium heart score is not able to evaluate the presence or burden of non-calcified (i.e. soft) plaque. There is no identifiable calcification in the aortic valve, mitral annulus or mitral valve, pericardium, or myocardium. Coronary CT Angiography The coronary arterial system is right dominant. Quantitative Stenosis Grading: Left Main (LM): The left main originates normally from the left sinus of Valsalva. The LM bifurcates into the left anterior descending artery and left circumflex artery. The LM is patent with no evidence of atherosclerosis. Left Anterior Descending (LAD) and Diagonal Branches: The LAD gives off 2 diagonal branch(es). The LAD and its branches are patent with no evidence of atherosclerosis. There is no evidence of LAD-myocardial bridge. Left Circumflex (LCX) and Obtuse Marginals (OM): The LCX gives off 1 Obtuse Marginal (OM) branch(es). The LCX and its branches are patent with no evidence of atherosclerosis. Right Coronary Artery (RCA): The RCA originates normally from the right sinus of Valsalva. The RCA gives off a posterior descending artery (PDA) and posterolateral (PL) branches. The RCA and its branches are patent with no evidence of atherosclerosis. Non-Coronary Cardiac Findings: Analysis of the left ventricular (LV) structure and function was performed after 3-D reconstruction of the LV from axial images, with user-corrected automatic contouring for assessment of LV volumes and user-defined reconstruction from oblique planes for measurement of 3-D cardiac structure and function. -The left ventricle systolic function is normal. -There is no left atrial appendage filling defect. Two right pulmonary veins and two left pulmonary veins drain normally into the left atrium. -No pericardial thickening or calcification. -Central and branch pulmonary arteries in the [id number] are unremarkable. -Thoracic aorta within the visualized thoracic aortic-branches in the [id number] is unremarkable. Extracardiac Structures No significant extra-cardiac findings. Note, however, that this study is focused on the cardiac findings. IMPRESSION -No coronary calcification with an Agatston score = 0 using the AJ-130 method. -No evidence of significant flow-limiting atherosclerosis of the coronary arteries. -No evidence of coronary anomalies or myocardial bridges. -CAD-RADS 0. Management recommendations per ACC/AHA guidelines*, as clinically appropriate. *Recommendations: CAD RADS 0: Reassurance. Consider non-atherosclerotic causes of chest pain. CAD RADS 1: Consider non-atherosclerotic causes of chest pain. Consider preventive therapy and risk factor modification. CAD RADS 2: Consider non-atherosclerotic causes of chest pain. Consider preventive therapy and risk factor modification, particularly for patients with nonobstructive plaque in multiple segments. CAD RADS 3: Consider further functional testing. Consider symptom-guided anti-ischemic and preventive pharmacotherapy as well as risk factor modification per published guideline statements. CAD RADS 4A: Consider further functional testing or invasive coronary angiography with revascularization per published guideline statements. Consider symptom-guided anti-ischemic and preventive pharmacotherapy as well as risk factor modification per published guideline statements. CAD RADS 4B: Invasive coronary angiography recommended with revascularization per published guideline statements. Consider symptom-guided anti-ischemic and preventive pharmacotherapy as well as risk factor modification per published guideline statements. CAD RADS 5: Consider invasive angiography and/or viability assessment with revascularization per published guideline statements. Consider symptom-guided anti-ischemic and preventive pharmacotherapy as well as risk factor modification per published guideline statements. CRITICAL RESULT None COMMUNICATION Per this written report The coronary and cardiac findings of this CCTA were reviewed, reported, and signed by Chavo Rodriguez MD (Airplane Captain) Conclusion Electronically signed by : Katarzyna Rodriguez MD 12/16/2023 14:10:13
[2023-12-12] MEDS: NITROGLYCERIN 0.4MG SL TABLET SL (09:55)
[2023-12-12] MEDS: METOPROLOL TARTRATE 5MG/5ML VIAL 5 MG IV (10:03)
[2023-12-12] MEDS: 0.9 % SODIUM CHLORIDE 50 ML VIAL IV (10:35)
[2023-12-12] MEDS: SODIUM CHLORIDE 0.9% 10ML SYR (RAD ONLY) 10 ML IV (10:35)
[2023-12-12] MEDS: IOPAMIDOL-370 (76%);100ML BOTTLE 85 ML IV (10:35)
== END 2023-12-12 10:35 | disposition home or self-care (01) ==
PROVIDERS: PCP Physician Assistant; Visit Provider Nurse Practitioner
DX: R93.1 Abnormal findings on diagnostic imaging of heart and coronary circulation (principal)
CPT/HCPCS: 75574; Q9967

== ENCOUNTER 2024-01-08 10:34 | Outpatient (CLI) | payer BC, SELFPAY ==
[2024-01-08 10:50] LABS: Microscopic, Urine URINE MICROSCOPIC (MICROSCOPIC)
[2024-01-08 11:18] LABS: Basophils % 0.8 % (0.1-2.0); Eosinophils # 0.2 K/mm3 (0.0-0.4); Eosinophils % 3.9 % (0.1-12.0); Hematocrit 41.4 % (42.0-52.0); Hemoglobin 13.7 g/dL (14.1-18.0); Lymphocytes # 1.5 K/mm3 (0.7-4.5); Lymphocytes % 28.2 % (10-50); Mean Corpuscular HGB Conc 33.1 g/dL (31.8-35.4); Mean Corpuscular Hemoglobin 31.8 pg (27.0-31.2); Mean Corpuscular Volume 95.8 fl (80-94); Mean Platelet Volume 8.2 fl (7.4-10.4); Monocytes # 0.4 K/mm3 (0.1-1.0); Neutrophils # 3.1 K/mm3 (1.8-7.8); Neutrophils % 60.1 % (37.0-80.0); Platelet Count 202 K/mm3 (142-424); Red Blood Count 4.32 M/mm3 (4.60-6.20); Red Cell Distribution Width 13.8 % (11.5-17.5); White Blood Count 5.2 K/mm3 (4.8-10.8)
[2024-01-08 11:53] LABS: Anion Gap 8.1 mEq/L (5-15); Blood Urea Nitrogen 10 mg/dl (9-20); Carbon Dioxide 30 mmol/L (22.0-30.0); Chloride 108 mmol/L (98-107); Estimated Glomerular Filt Rate 139 ml/min (>60); GFR (African American) 168 ML/MIN (>60); Glucose 102 mg/dl (74-100); Potassium 4.1 mmoL/L (3.5-5.1); Sodium 142 mmol/L (136-145)
[2024-01-08 12:24] LABS: Appearance,Urine CLEAR (Clear); Bilirubin,Urine Negative (Negative); Blood, Urine Negative (Negative); Color,Urine YELLOW (Yellow); Glucose,Urine (UA) Negative (Negative); Ketones,Urine Negative (Negative); Leukocyte Esterase,Urine Negative (Negative); Nitrate,Urine Negative (Negative); Protein,Urine Negative (Negative); Urobilinogen,Urine 0.2 EU/dl (0.2)
== END 2024-01-08 23:59 | disposition home or self-care (01) ==
LOC: LAB 10:35
PROVIDERS: PCP Physician Assistant; Visit Provider Surgery
DX: K40.90 Unilateral inguinal hernia, without obstruction or gangrene, not specified as recurrent (principal)
CPT/HCPCS: 36415; 80048; 81001; 85025

== ENCOUNTER 2024-01-16 06:43 | Day surgery (SDC) | payer BC, SELFPAY ==
[2024-01-16] VITALS (12 sets, daily range): BP systolic 121–141; BP diastolic 61–89; PULSE 71–87; RESP 14–18; TEMP 36.2–36.9; O2SAT 93–99; BMI 22.4
[2024-01-16] MEDS: LACTATED RINGERS 1000ML 1,000 ML 25 ML IV (07:13)
--- NOTE | 2024-01-16 07:56 | EXP.ANES.CKL ---
[facility] Disclaimer: The information contained in this section may have been updated after the patient was seen, as this information can be updated by other users. Medical History (Updated 01/16/24 @ 07:05 by Kristen Gaona RN) Asthma Pulmonary emphysema COPD mixed type Lung nodule seen on imaging study History of smoking 30 or more pack years Abnormal findings on diagnostic imaging of heart and coronary circulation Depression Anxiety Surgical History H/O toe surgery Lipoma Family History Other No significant family history Social History (Updated 01/16/24 @ 07:05 by Kristen Gaona RN) Smoking Status: Former smoker tobacco type: smokeless tobacco alcohol intake: former substance use type: denies use current occupational status: employed Travel in the last 8 weeks: None [facility] Anesthesia Checklist Patient Identification Patient Identification: Arm Band Structural Data Admitted From: Home Planned Operative Procedure/s: Right Open Inguinal Hernia Repair Consent for Planned Operative Procedure(s) Verified: Yes Verified Documents: Surgical Consent and History and Physical NPO Status Verified Time NPO: 00:00 Additional verifications Anesthesia Reactions: No Hx Blood Transfusions: No Blood Transfusion Reaction: No Airway Assessment Mallampati Score:: Class II C-Spine Mobility Assessed: Yes TMJ Mobility Assessed: Yes Dentition: Poor Dentition Neurological Assessment Level of Consciousness: Awake, Alert and Appropriate Anesthesia Plan Anesthesia Risk discussed: Yes Anesthesia Plan: Verified ASA Class: III Anesthesia Type: General
[2024-01-16] MEDS: CEFAZOLIN SODIUM 1GM ADV 1 GM IV (09:00)
[2024-01-16] MEDS: 0.9 % SODIUM CHLORIDE 100 ML 50 ML IV (09:00)
[2024-01-16] MEDS: LIDOCAINE 1% 20ML MDV 20 ML (09:28)
--- NOTE | 2024-01-16 10:43 | P.OP_ITS ---
Date of procedure: 01/16/24 Pre-op Diagnosis:: Right inguinal hernia Post-op Diagnosis:: Sliding right inguinal hernia Procedure performed:: Open right inguinal hernia repair (sliding hernia) Surgeon:: Clyde Kim MD SPECIAL EDUCATION ADMINISTRATOR:: Hilaria Souza Anesthesia: LMA Estimated blood loss (mL): 15 Operative findings:: Sliding hernia Severe soft tissue thickening/scar tissue throughout inguinal canal Operative note:: After informed consent was obtained the patient was taken to the operating room and placed in the supine position. General anesthesia was induced and his abdomen and groin/scrotum were prepped and draped in a sterile fashion. After infiltration with local anesthetic an oblique right groin incision was made. Electrocautery was utilized to transect through Jaylin's fascia to the level of the external aponeurosis. The external aponeurosis was sharply opened to the level of the external ring. The contents of the canal were carefully elevated. Severe soft tissue thickening/scar tissue was noted throughout. A combination of blunt dissection, sharp dissection, and electrocautery was utilized to free the hernia sac from surrounding tissue. No obvious injury to the vas deferens or vessels was noted. The distal hernia sac was carefully opened with Metzenbaum scissors. A complex sliding hernia was confirmed. The hernia sac was closed with running Vicryl suture and then returned to the abdominal cavity. An extra-large PerFix plug was secured in position with interrupted Ethibond. The PerFix overlay was secured to the shelving edge inferiorly and fascial margin superiorly with interrupted Ethibond. The external aponeurosis was reapproximated with running Vicryl suture. Jaylin's fascia was closed in the same manner. Skin was then closed with the INSORB stapling device. Dressings were applied and the patient was transferred to recovery in stable condition. Condition: stable Disposition: PACU Specimens:: None Complications:: No immediate
--- NOTE | 2024-01-16 10:46 | P.PNANES_ITS ---
[facility] Anesthesia Record Part I Anesthesia Record I Intake, IV Amount: 850 Hydration: Adequate Estimated blood loss (mL): 10 Urine output (mL): 0 Blood Products used (#): none Blood Pressure: 141/71 SaO2: 96 Pulse Rate: 87 Airway Patency: Patent Respiratory Rate: 16 Temperature: 98.4 F Patient is:: Awake, Drowsy, Oral/Nasal airway (10.0 oral airway) and Stable Stable to PACU at:: 10:45
[2024-01-16] MEDS: MORPHINE 2MG/ML SYRINGE 2 MG IV ×2 (11:08→11:18)
--- NOTE | 2024-01-16 14:08 | P.PNANES_ITS ---
[facility] Anesthesia Record Part II Anesthesia Record Part II Discharge Time: 11:20 Destination: Surgical Day Care (OP Surgery) PACU nurse assessment reviewed?: Yes Patient Condition:: Good Anesthesia Complications:: None Swallowing reflex intact?: Yes Airway Patency: Patent Cyanosis?: No Blood Pressure: 124/61 SaO2: 96 Respiratory Rate: 16 Pulse Rate: 71 Temperature: 98.4 F Mental Status: Alert & Oriented Pain level:: 5 Nausea and/or vomitting:: None Intake, IV Amount: 850 Hydration: Adequate
== END 2024-01-16 12:02 | disposition home or self-care (01) ==
PROVIDERS: PCP Physician Assistant; Visit Provider Surgery
PROC: (CPT 49525; principal; 2024-01-16 08:30)
DX: K40.90 Unilateral inguinal hernia, without obstruction or gangrene, not specified as recurrent (principal)
CPT/HCPCS: 49525; 96374; J0690; J1100; J1885; J2250; J2270; J2405; J3010; J7120

== ENCOUNTER 2024-02-26 09:59 | Outpatient (CLI) | payer BC, SELFPAY ==
--- NOTE | 2024-02-26 10:09 | XR_ITS ---
FINAL REPORT CLINICAL HISTORY: R Hip pain COMPARISON: None FINDINGS: RIGHT HIP Two views of the right hip with an AP view of the pelvis demonstrate no acute fracture or dislocation. The joint spaces appear normal. The visualized bony structures are well aligned. No soft tissue abnormality is seen. IMPRESSION: No acute bony abnormality. Reviewed, Interpreted and Dictated by Zheng Quinones MD Transcribed by Vita Orozco Authenticated and . [facility]
== END 2024-02-26 23:59 | disposition home or self-care (01) ==
LOC: RAD 10:00
PROVIDERS: PCP Nurse Practitioner Family; Visit Provider Nurse Practitioner Family
DX: M25.551 Pain in right hip (principal)
CPT/HCPCS: 73502

== ENCOUNTER 2024-05-06 13:33 | Outpatient (CLI) | payer BC, SELFPAY ==
[2024-05-06 18:24] LABS: Influenza A, PCR Not Detected (NotDetected); Influenza B, PCR Not Detected (NotDetected)
[2024-05-06 20:33] LABS: Coronavirus 19, PCR Detected (NotDetected)
== END 2024-05-06 23:59 | disposition home or self-care (01) ==
LOC: LAB.DROPOF 05-07 10:28
PROVIDERS: PCP Family Medicine; Visit Provider Family Medicine
DX: R68.89 Other general symptoms and signs (principal)
CPT/HCPCS: 87636

== ENCOUNTER 2024-10-01 14:12 | Outpatient (CLI) | payer BC, SELFPAY ==
[2024-10-01 17:20] LABS: Basophils % 0.6 % (0.1-2.0); Eosinophils # 0.2 K/mm3 (0.0-0.4); Eosinophils % 4.4 % (0.1-12.0); Hematocrit 43.8 % (42.0-52.0); Lymphocytes # 1.3 K/mm3 (0.7-4.5); Lymphocytes % 25.8 % (10-50); Mean Corpuscular HGB Conc 34.2 g/dL (31.8-35.4); Mean Corpuscular Hemoglobin 31.1 pg (27.0-31.2); Mean Corpuscular Volume 90.7 fl (80-94); Mean Platelet Volume 10.2 fl (7.4-10.4); Monocytes # 0.5 K/mm3 (0.1-1.0); Monocytes % 9.1 % (1.7-9.3); Neutrophils # 3.1 K/mm3 (1.8-7.8); Neutrophils % 59.7 % (37.0-80.0); Platelet Count 224 K/mm3 (142-424); Red Blood Count 4.83 M/mm3 (4.60-6.20); Red Cell Distribution Width 12.6 % (11.5-17.5); White Blood Count 5.2 K/mm3 (4.8-10.8)
[2024-10-01 18:06] LABS: Erythrocyte Sedimentation Rate 6 mm/hr (0-20)
[2024-10-01 18:10] LABS: Alanine Aminotransferase 27 U/L (12-78); Albumin Level 3.9 g/dl (3.5-5.0); Albumin/Globulin Ratio 1.3 (1.1-1.8); Alkaline Phosphatase 93 U/L (38-126); Anion Gap 11.9 mEq/L (5-15); Aspartate Amino Transferase 28 U/L (17-59); Bilirubin,Total 1.1 mg/dl (0.2-1.3); Blood Urea Nitrogen 11 mg/dl (9-20); Calcium 8.9 mg/dl (8.4-10.2); Carbon Dioxide 28 mmol/L (22.0-30.0); Chloride 106 mmol/L (98-107); Chol/HDL Ratio 4.1 (1-3.5); Cholesterol 173 mg/dl (140-200); Estimated Glomerular Filt Rate 116 ml/min (>60); GFR (African American) 140 ML/MIN (>60); Globulin 3.1 g/dL (1.3-3.2); Glucose 104 mg/dl (74-100); HDL Cholesterol 42 mg/dl (40-60); Potassium 3.9 mmoL/L (3.5-5.1); Sodium 142 mmol/L (136-145); Triglycerides 190 mg/dl (30-150); VLDL Cholesterol 38 mg/dL (0-40)
[2024-10-01 18:21] LABS: C-Reactive Protein 4.3 mg/L (0-4); Direct LDL Cholesterol 103.89 mg/dL (100-129)
[2024-10-01 18:22] LABS: Free Thyroxine Index 2.1 ug/dL (5.93-13.13); T4 (Thyroxine) 6.7 ug/dl (5.53-11.0); Triiodothryronine (T3) Uptake 31 % (23.5-40.5)
[2024-10-01 18:28] LABS: 25-OH Vitamin D, Total 22.1 ng/mL (30-100)
[2024-10-01 18:36] LABS: Thyroid Stimulating Hormone 1.26 uIU/mL (0.465-4.68)
[2024-10-01 19:10] LABS: Hemoglobin A1C 4.6 % (4.0-6.0)
== END 2024-10-01 23:59 | disposition home or self-care (01) ==
LOC: LAB.DROPOF 10-02 10:34
PROVIDERS: PCP Family Medicine; Visit Provider Family Medicine
DX: R53.83 Other fatigue (principal); J30.9 Allergic rhinitis, unspecified; Z12.11 Encounter for screening for malignant neoplasm of colon; R06.81 Apnea, not elsewhere classified; M54.50 Low back pain, unspecified
CPT/HCPCS: 80053; 80061; 82306; 83036; 84436; 84443; 84479; 85025; 85651; 86140

== ENCOUNTER → 2024-11-06 10:12 | Outpatient (CLI) | payer BC, SELFPAY | LOC: SL 10:13 | PROVIDERS: PCP Family Medicine; Visit Provider Family Medicine | DX: G47.33 Obstructive sleep apnea (adult) (pediatric) (principal); R06.83 Snoring; R53.83 Other fatigue; R40.0 Somnolence | CPT/HCPCS: G0399 ==

== ENCOUNTER 2024-11-25 14:29 | Outpatient (CLI) | payer BC, SELFPAY ==
--- NOTE | 2024-11-25 14:27 | CT_ITS ---
FINAL REPORT TECHNIQUE: Axial CT images of the chest were obtained without contrast. Low-dose protocol was utilized. This study was performed with techniques to keep radiation doses as low as reasonably achievable (ALARA). Individualized dose reduction techniques using automated exposure control or adjustment of mA and/or kV according to the patient's size were employed. CLINICAL HISTORY: .former smoker quit 5 years ago, 1ppd x43 years COMPARISON: None FINDINGS: CT CHEST WITHOUT, LOW DOSE SCREENING CT Di Vol: 2.90 mGy DLP: 114.90 mGy*cm There are calcified mediastinal and hilar lymph nodes. The heart size is normal. There is no pleural or pericardial effusion. The lung windows show a multitude of scattered calcified granulomas in both lungs. There are several small noncalcified nodules at the left lung base. For example a 3 mm nodule posteriorly on image 66 of series 4 and a 3 mm nodule posteriorly of on image 76 of series 4. There is also a 3 mm nodule in the periphery of the right lower lobe well-seen on image 65 of series 4. Limited images of the upper abdomen demonstrate no acute findings. IMPRESSION: Bilateral lung nodules. LR Category 2: 12 month follow-up low-dose chest CT is recommended per Fleischner criteria. Reviewed, Interpreted and Dictated by Zheng Quinones MD Transcribed by Vita Orozco Authenticated and [facility]
== END 2024-11-25 23:59 | disposition home or self-care (01) ==
LOC: RAD 14:29
PROVIDERS: PCP Family Medicine; Visit Provider Internal Medicine Pulmonary Disease
DX: R91.8 Other nonspecific abnormal finding of lung field (principal); Z12.2 Encounter for screening for malignant neoplasm of respiratory organs; F17.210 Nicotine dependence, cigarettes, uncomplicated
CPT/HCPCS: 71271

== ENCOUNTER 2024-12-07 12:25 | Outpatient (CLI) | payer BC, SELFPAY ==
[2024-12-07 13:31] LABS: Blood Urea Nitrogen 21 mg/dl (9-20); Estimated Glomerular Filt Rate 99 ml/min (>60); GFR (African American) 120 ML/MIN (>60)
== END 2024-12-07 23:59 | disposition home or self-care (01) ==
LOC: LAB 12:25
PROVIDERS: PCP Family Medicine; Visit Provider Urology
DX: N40.0 Benign prostatic hyperplasia without lower urinary tract symptoms (principal); N52.9 Male erectile dysfunction, unspecified
CPT/HCPCS: 36415; 82565; 84520

== ENCOUNTER 2024-12-09 12:35 | Outpatient (CLI) | payer BC, SELFPAY ==
--- NOTE | 2024-12-09 12:38 | XR_ITS ---
FINAL REPORT CLINICAL HISTORY: renal stone COMPARISON: 11/26/2022 FINDINGS: ABDOMEN SINGLE VIEW There is a nonspecific, nonobstructive bowel gas pattern. No abnormal dilatation is identified. Gas and stool is seen throughout the colon. There is no abnormal calcification. IMPRESSION: No acute process. Reviewed, Interpreted and Dictated by Zheng Quinones MD Transcribed by Mary Villegas Authenticated and [facility]
--- NOTE | 2024-12-09 13:30 | US_ITS ---
FINAL REPORT CLINICAL HISTORY: renal stones COMPARISON: None FINDINGS: RENAL ULTRASOUND Ultrasound images of the kidneys were obtained. The right kidney measures 10.2 cm in length. It is normal echogenicity. There is no hydronephrosis. The left kidney measures 11.8 cm in length. It is normal echogenicity. There is no hydronephrosis. IMPRESSION: Normal renal ultrasound. Reviewed, Interpreted and Dictated by Zheng Quinones MD Transcribed by Vita Orozco Authenticated and [facility]
== END 2024-12-09 23:59 | disposition home or self-care (01) ==
LOC: RAD 12:36
PROVIDERS: PCP Family Medicine; Visit Provider Urology
DX: N40.0 Benign prostatic hyperplasia without lower urinary tract symptoms (principal); N52.9 Male erectile dysfunction, unspecified; N20.0 Calculus of kidney
CPT/HCPCS: 74018; 76770

== ENCOUNTER 2024-12-21 09:17 | Outpatient (CLI) | payer BC, SELFPAY ==
[2024-12-21 10:14] LABS: Chloride 100 mmol/L (98-107)
[2024-12-21 10:15] LABS: Potassium 3.6 mmoL/L (3.5-5.1); Sodium 140 mmol/L (136-145)
[2024-12-21 10:18] LABS: Anion Gap 13.6 mEq/L (5-15); Carbon Dioxide 30 mmol/L (22.0-30.0)
[2024-12-22 08:13] LABS: PSA, Free 0.18 ng/mL; Prostate Specific Ag 0.7 ng/mL (0.0-4.0)
== END 2024-12-21 23:59 | disposition home or self-care (01) ==
LOC: LAB 09:18
PROVIDERS: PCP Family Medicine; Visit Provider Urology
DX: N40.0 Benign prostatic hyperplasia without lower urinary tract symptoms (principal); N52.9 Male erectile dysfunction, unspecified; R25.2 Cramp and spasm
CPT/HCPCS: 36415; 80051; 84153; 84154

== ENCOUNTER 2025-01-28 11:44 | Outpatient (CLI) | payer BC, SELFPAY ==
[2025-01-28 13:30] LABS: Vitamin B12 400 pg/mL (239-931)
== END 2025-01-28 23:59 | disposition home or self-care (01) ==
LOC: LAB 11:45
PROVIDERS: PCP Family Medicine; Visit Provider Specialist
DX: G47.10 Hypersomnia, unspecified (principal); R53.83 Other fatigue; R40.0 Somnolence
CPT/HCPCS: 36415; 82607

== ENCOUNTER 2025-03-16 15:00 | Outpatient (CLI) | payer BC, SELFPAY ==
[2025-03-16 19:33] LABS: Hematocrit 41.6 % (42.0-52.0); Hemoglobin 14.0 g/dL (14.1-18.0); Immature Granulocytes % 0.2 %; Mean Corpuscular HGB Conc 33.7 g/dL (31.8-35.4); Mean Corpuscular Hemoglobin 31.3 pg (27.0-31.2); Mean Corpuscular Volume 92.9 fl (80-94); Nucleated Red Blood Cells % 0 %; Platelet Count 234 K/mm3 (142-424); Red Blood Count 4.48 M/mm3 (4.60-6.20); Red Cell Distribution Width-SD 43.7 fL; White Blood Count 4.8 K/mm3 (4.8-10.8)
[2025-03-16 20:31] LABS: Alanine Aminotransferase 18 U/L (12-78); Albumin Level 4.1 g/dl (3.5-5.0); Albumin/Globulin Ratio 1.4 (1.1-1.8); Alkaline Phosphatase 72 U/L (38-126); Anion Gap 10.9 mEq/L (5-15); Aspartate Amino Transferase 23 U/L (17-59); Bilirubin,Total 0.8 mg/dl (0.2-1.3); Blood Urea Nitrogen 10 mg/dl (9-20); Calcium 9.1 mg/dl (8.4-10.2); Carbon Dioxide 28 mmol/L (22.0-30.0); Chloride 106 mmol/L (98-107); Creatinine,Serum 0.70 mg/dl (0.66-1.25); Estimated Glomerular Filt Rate 116 ml/min (>60); GFR (African American) 140 ML/MIN (>60); Globulin 2.9 g/dL (1.3-3.2); Glucose 77 mg/dl (74-100); Potassium 3.9 mmoL/L (3.5-5.1); Sodium 141 mmol/L (136-145); Total Protein,Serum 7.0 g/dl (6.3-8.2)
[2025-03-16 20:42] LABS: C-Reactive Protein 0.8 mg/L (0-4)
== END 2025-03-16 23:59 ==
LOC: LAB.DROPOF 03-17 10:08
PROVIDERS: PCP Family Medicine; Visit Provider Family Medicine
DX: E55.9 Vitamin D deficiency, unspecified (principal); R53.82 Chronic fatigue, unspecified; R52 Pain, unspecified
CPT/HCPCS: 80053; 85025; 85651; 86140

== ENCOUNTER 2025-04-12 17:12 | Emergency (ER) | payer SELFPAY ==
[2025-04-12] VITALS (8 sets, daily range): BP systolic 130–162; BP diastolic 89–101; PULSE 68–94; RESP 16–20; TEMP 36.9–37.1; O2SAT 97–99; BMI 22.9
--- NOTE | 2025-04-12 17:42 | XR_ITS ---
PROCEDURE INFORMATION: Exam: XR Left Foot Exam date and time: 04/12/2025 6:19 PM Age: 59 years old Clinical indication: Pain; Foot; Left; Additional info: Foot pain TECHNIQUE: Imaging protocol: Radiologic exam of the left foot. Views: 3 or more views. COMPARISON: No relevant prior studies available. FINDINGS: Bones/joints: No acute fracture or malalignment. Minimal joint space narrowing of the 1st metatarsophalangeal joint. Small calcifications project along the medial margin of the head of the 1st metatarsal. Findings more compatible with mild arthritic change. No bony erosion or destruction. Tarsal bones are intact and normally aligned. Small plantar calcaneal spur. Soft tissues: Minimal soft tissue swelling overlying the 1st metatarsophalangeal joint. No opaque foreign body. IMPRESSION: No acute findings. No fracture or malalignment. No bony erosion or destruction. Mild arthritic changes present at the 1st metatarsophalangeal joint.
--- NOTE | 2025-04-12 17:43 | PC.NURSE ---
patient offered treatment room 13 to get treatment started. patient educated that family would have to remain in the lobby. patient wished to return to the lobby at this time. educated patient to let us know if any new symptoms arise or if any current symptoms worsened. xrays ordered and patient sent back to the lobby at this time.
[2025-04-12 20:00] LABS: Hematocrit 44.4 % (42.0-52.0); Hemoglobin 15.0 g/dL (14.1-18.0); Immature Granulocytes % 0.3 %; Mean Corpuscular HGB Conc 33.8 g/dL (31.8-35.4); Mean Corpuscular Hemoglobin 31.1 pg (27.0-31.2); Mean Corpuscular Volume 91.9 fl (80-94); Nucleated Red Blood Cells % 0 %; Platelet Count 240 K/mm3 (142-424); Red Blood Count 4.83 M/mm3 (4.60-6.20); Red Cell Distribution Width-SD 41.7 fL; White Blood Count 7.2 K/mm3 (4.8-10.8)
[2025-04-12 20:11] LABS: Albumin Level 4.6 g/dl (3.5-5.0); Chloride 98 mmol/L (98-107); Potassium 3.9 mmoL/L (3.5-5.1); Sodium 139 mmol/L (136-145)
[2025-04-12 20:14] LABS: Alanine Aminotransferase 40 U/L (12-78); Albumin/Globulin Ratio 1.2 (1.1-1.8); Alkaline Phosphatase 94 U/L (38-126); Anion Gap 13.9 mEq/L (5-15); Aspartate Amino Transferase 44 U/L (17-59); Bilirubin,Total 0.9 mg/dl (0.2-1.3); Blood Urea Nitrogen 10 mg/dl (9-20); Calcium 8.6 mg/dl (8.4-10.2); Carbon Dioxide 31 mmol/L (22.0-30.0); Creatinine Clearance Estimated 128 mL/min (50-200); Creatinine,Serum 0.70 mg/dl (0.66-1.25); Estimated Glomerular Filt Rate 116 ml/min (>60); GFR (African American) 140 ML/MIN (>60); Globulin 3.8 g/dL (1.3-3.2); Glucose 97 mg/dl (74-100); Total Protein,Serum 8.4 g/dl (6.3-8.2)
[2025-04-12] MEDS: LIDOCAINE 1% 10ML MDV 10 ML SUBCUT (20:31)
[2025-04-12 21:25] LABS: C-Reactive Protein 2.8 mg/L (0-4)
--- NOTE | 2025-04-12 21:47 | ED_ITS ---
Discharge Plan Disposition Patient Disposition: Home, Self-Care Condition: Good Prescriptions Prescriptions: New naproxen 500 mg tablet 500 mg PO BID 7 Days Qty: 14 0RF prednisone 20 mg tablet 20 mg PO BID 5 Days Qty: 10 0RF colchicine 0.6 mg tablet 0.6 mg PO BID 2 Days Qty: 4 0RF No Action omeprazole 20 mg capsule,delayed release(DR/EC) 20 mg PO DAILY Qty: 30 2RF celecoxib [Celebrex] 100 mg capsule 100 mg PO BID Qty: 120 4RF albuterol sulfate 90 mcg/actuation HFA aerosol inhaler 2 inh inhalation QID PRN (Reason: shortness of breath or wheezing) 90 Days Qty: 8.5 2RF cholecalciferol (vitamin D3) 1,250 mcg (50,000 unit) tablet 1,250 mcg PO WEEKLY Qty: 12 3RF cyclobenzaprine 5 mg tablet See Rx Instructions .ROUTE .COMPLEX Qty: 60 3RF Dose Instruction: TAKE 1 TABLET BY MOUTH TWICE DAILY NEEDED FOR MUSCLE SPASM Rx Instructions: TAKE 1 TABLET BY MOUTH TWICE DAILY NEEDED FOR MUSCLE SPASM Referrals Follow up/Referrals: Ninoska Sutherland APRN [Primary Care Provider, Family Practice] - See instructions Oliver Jenkins DO [Staff Physician, Orthopedics] - See instructions Activity Restrictions/Add. Instructions Additional Instructions/Restrictions: Your presentation is consistent with gout. I want you to call Dr. Jenkins's clinic in the morning for follow up. You can take Naproxen 500 mg twice daily for the next 7 days. Take prednisone 20 mg twice daily for the next 5 days. Take Colchicine 0.6 mg twice daily for the next 2 days. If you develop fevers or any other new or worsening symptoms please return to the ER for further evaluation. Clinical Impressions Clinical Impression: Swelling of first metatarsophalangeal (MTP) joint Print Language Print Language: Malawian Discharge ED Provider: Clay Denton Adult HPI General Chief complaint: Extremity Injury, Lower Stated complaint: left foot swollen, painful Time Seen by Provider: 04/12/25 19:30 Mode of Arrival: Ambulatory Source of Information: Patient Description of Symptoms (Recalled from ER Triage Doc. by RN): Pt woke up with pain in his left foot. No injury or trauma to the area. History of Present Illness HPI narrative: This is a 59-year-old male patient, with past medical history of anxiety, depression, tobacco abuse, and COPD, who is presenting to the emergency department today for evaluation of right foot pain. Patient states that he has not had any trauma to the right foot. He describes waking up this morning and having erythema and significant pain over the first MTP joint of the left foot. He states he has never had symptoms like this in the past. He has never been formally diagnosed with gout. He denies history of IV drug use as well as prior episodes of bacteremia requiring treatment IV antibiotics. He does have pain with weightbearing. He also has pain with dorsiflexion and plantarflexion of the great toe. He denies fevers or systemic symptoms. He does state that he eats lots of meat but he does not drink alcohol Related Data Previous Rx's ?Medication ?Instructions ?Recorded albuterol sulfate 90 mcg/actuation 2 inh inhalation QI D PRN shortness 10/01/24 aerosol inhaler of breath or wheezing 90 day s #8.5 grams celecoxib 100 mg capsule (Celebrex) 100 mg PO BID #120 caps 10/01/24 omeprazole 20 mg capsule,delayed 20 mg PO DAILY #30 ca ps 10/30/24 release cyclobenzaprine 5 mg tablet See Rx Instructions .Route 11/24/24 .COMPLEX #60 tabs cholecalciferol (vitamin D3) 1,250 1,250 mcg PO WEEKLY #12 tabs 01/28/25 mcg (50,000 unit) tablet colchicine 0.6 mg tablet 0.6 mg PO BID 2 days #4 tabs 04/12/25 naproxen 500 mg tablet 500 mg PO BID 7 days #14 tab s 04/12/25 prednisone 20 mg tablet 20 mg PO BID 5 days #10 tabs 04/12/25 Allergies Allergy/AdvReac Type Severity Reaction Status Date / Time acetaminophen (From TYLENOL) Allergy Intermediate I-HIVES Verified 03/16/25 13:44 codeine (CODEINE) Allergy Unknown I-HIVES Verified 03/16/25 13:44 [facility] Disclaimer: The information contained in this section may have been updated after the patient was seen, as this information can be updated by other users. Medical History Upper respiratory infection, acute Ex-smoker Right hip pain Upper respiratory symptom Allergic rhinitis Colon cancer screening Asthma Pulmonary emphysema COPD mixed type Lung nodule seen on imaging study History of smoking 30 or more pack years Abnormal findings on diagnostic imaging of heart and coronary circulation Depression Anxiety Surgical History H/O right inguinal hernia repair H/O toe surgery Lipoma States he had a lipoma removed from his left side years ago. Family History Other Asthma Cancer Social History Smoking Status: Never smoker alcohol intake: former substance use type: denies use current occupational status: employed Travel in the last 8 weeks?: None household members: spouse and children housing: house marital status: number of children: 6 Have you lived/traveled outside [place] in past 30 days?: No Contact w/someone who lives/traveled outside US past 30 days?: No Exposure to someone with infectious disease in past 14 days?: No Do you have a fever (greater than 100.4 F or 38 C)?: No Have you tested positive for COVID-19?: No Exposed to someone with COVID-19 in past 14 days?: No Do you have a sore throat?: No Do you have a cough?: No Do you have any weakness?: No Do you have any diarrhea?: No Are you experiencing any unusual bleeding?: No Do you have any muscle aches/pain?: No Do you have any abdominal pain?: No Are you experiencing loss of taste or smell?: No Other Medical History Have you received the Flu Vaccine for this season: No Have you received the Pneumonia Vaccine: No ROS Obtained: Yes Systems reviewed as appropriate & no additional complaints except as documented Physical Exam General General appearance: other (See MDM) Respiratory Respiratory exam: Present other (See MDM) Cardiovascular Cardiovascular exam: Present other (See MDM) Neurological Exam Neurological exam: Present other (See MDM) Medical Decision Making Medical Records Medical records reviewed: Yes I reviewed the patient's medical records. Screening: Per USPSTF and CDC recommendations, given the prevalence of disease in our region, it is our hospital?s policy to screen for HIV and viral Hepatitis for all patients aged 18 and over and those with ongoing risk factors. [place] Inquiry Pt receiving controlled substance: No [place] was queried for this patient: No Vital Signs: 04/12/25 17:38 04/12/25 17:41 04/12/25 19:30 Temperature 98.7 F 98.8 F Temperature Source Temporal Artery Scan Pulse Rate 86 84 Pulse Rate [Right] 94 H Respiratory Rate 20 18 Blood Pressure 139/90 139/90 Blood Pressure [Right Arm] 148/96 H Blood Pressure Mean [Right Arm] 113 Blood Pressure Source Blood Pressure Source [Right Arm] Automatic Cuff Blood Pressure Position Blood Pressure Position [Right Arm] Sitting 02 Sat by Pulse Oximetry 99 97 99 Oxygen Delivery Method Room Air 04/12/25 20:00 04/12/25 20:30 04/12/25 21:01 Temperature Temperature Source Pulse Rate 77 77 75 Pulse Rate [Right] Respiratory Rate Blood Pressure 130/91 H 146/94 H 162/101 H Blood Pressure [Right Arm] Blood Pressure Mean [Right Arm] Blood Pressure Source Blood Pressure Source [Right Arm] Blood Pressure Position Blood Pressure Position [Right Arm] 02 Sat by Pulse Oximetry 99 99 97 Oxygen Delivery Method 04/12/25 21:30 04/12/25 22:04 Temperature 98.5 F Temperature Source Oral Pulse Rate 68 78 Pulse Rate [Right] Respiratory Rate 16 Blood Pressure 145/97 H 139/89 Blood Pressure [Right Arm] Blood Pressure Mean [Right Arm] Blood Pressure Source Automatic Cuff Blood Pressure Source [Right Arm] Blood Pressure Position Sitting Blood Pressure Position [Right Arm] 02 Sat by Pulse Oximetry 99 Oxygen Delivery Method Room Air Lab Data Lab Results 04/12/25 19:56: WBC 7.2, RBC 4.83, Hgb 15.0, Hct 44.4, MCV 91.9, MCH 31.1, MCHC 33.8, RDW 12.4, Plt Count 240, MPV 9.7, Neut % (Auto) 67.8, Lymph % (Auto) 21.4, [place] % (Auto) 8.1, Eos % (Auto) 2.0, Baso % (Auto) 0.4, Neut # (Auto) 4.9, Lymph # (Auto) 1.5, [place] # (Auto) 0.6, Eos # (Auto) 0.1, Baso # (Auto) 0.0, ESR 17, Sodium 139, Potassium 3.9, Chloride 98, Carbon Dioxide 31 H, Anion Gap 13.9, BUN 10, Creatinine 0.70, Estimated Creat Clear 128, Estimated GFR 116, Est GFR ( Amer) 140, Glucose 97, Calcium 8.6, Total Bilirubin 0.9, AST 44, ALT 40, Alkaline Phosphatase 94, C-Reactive Protein 2.8, Total Protein 8.4 H, Albumin 4.6, Globulin 3.8 H, Albumin/Globulin Ratio 1.2 04/12/25 19:56 04/12/25 19:56 Orders (Tests/Meds): ED MEDICATIONS Discontinued Medications Generic Name Dose Route Start Last Admin Trade Name Freq PRN Reason Stop Dose Admin Colchicine 1.2 mg 04/12/25 21:54 04/12/25 22:03 Colchicine 0.6mg Tablet PO 04/12/25 21:55 1.2 mg ONCE ONE Administration Lidocaine HCl 10 ml 04/12/25 20:27 04/12/25 20:31 Lidocaine 1% 10ml Mdv SUBCUT 04/12/25 20:28 10 ml ONCE ONE Administration Naproxen 500 mg 04/12/25 21:55 04/12/25 22:03 Naproxen 500mg Tablet PO 04/12/25 21:56 500 mg ONCE ONE Administration Prednisone 60 mg 04/12/25 21:54 04/12/25 22:03 Prednisone 20mg Tab PO 04/12/25 21:55 60 mg ONCE ONE Administration ORDERS Category Date Time Status POCUS Point of Care (ER Only) Stat Exams 04/12/25 19:56 Completed XR foot LT min 3V Stat Exams 04/12/25 17:42 Completed CBC w/Auto Diff [Complete Blood Count Auto Diff] Stat Lab 04/12/25 19:56 Completed CMP [Comprehensive Metabolic Panel] Stat Lab 04/12/25 19:56 Completed CRP [C-Reactive Protein] Stat Lab 04/12/25 19:56 Completed ESR [Erythrocyte Sedimentation Rate] Stat Lab 04/12/25 19:56 Completed Medical Decision Narrative: In summary this is a 59-year-old male patient who is presenting to the emergency department today for evaluation of erythema, swelling, and significant pain over the left first MTP joint. This is in the setting of a heavy meat diet and no formal diagnosis of prior gout. He has no risk factors for septic joints and denies a history of IV drug use as well as bacteremia in the past. Patient's comorbidities include anxiety, depression, tobacco abuse, and COPD. On initial evaluation of the patient they were resting comfortably in no acute distress and nontoxic in appearance. They are hemodynamically stable, saturating well room air, and are neurologically intact. On physical examination the patient has no obvious deformity of the left foot. He does have erythema and swelling on the medial aspect of the left first MTP. There is marked tenderness in this region. His pain is significantly exacerbated with plantarflexion and dorsiflexion of the great toe. Differential diagnosis includes gouty arthritis, septic arthritis, inflammatory arthritis, osteoarthritis, among others Workup was initiated with an x-ray of the left foot as well as hematologic labs including a CRP and sed rate. X-rays were personally turbid by me and demonstrate no bony fracture or malalignment. Official radiology read states that there is arthritic changes of the first metatarsophalangeal joint with no bony erosions. Given these findings I felt that it was imperative to at least attempt an arthrocentesis of the metatarsophalangeal joint to definitively determine whether this was gouty arthritis, inflammatory arthritis, or septic arthritis. Patient was verbally consented and risk and benefits were explained to the patient including introduction of infection, bleeding, and potential failure of the procedure. Patient wished to proceed. The overlying skin was numbed with 1% lidocaine without epinephrine. The patient was prepped and draped in usual sterile fashion. Ultrasound was used to locate the joint space. The joint space was marked with a syringe. The entire foot was sterilized with chlorhexidine solution. A 22-gauge needle was used to enter the joint space with progressive aspiration upon entering. I was unable to obtain any fluid from the metatarsophalangeal joints and this procedure was ultimately unsuccessful. I did follow-up on the patient's labs and personally interpreted them. He has no leukocytosis, his CRP is 2.8, and his ESR is 17. Given that he does not have any elevation of inflammatory markers and he has no leukocytosis and has no constitutional symptoms such as fevers I feel that it is very unlikely for this to be septic arthritis. Especially with this occurring in the first metatarsophalangeal joint this is more likely to be consistent with a gouty arthritis. We have discussed treatment for gouty arthritis including anti- inflammatories, glucocorticoids, and colchicine. Patient is amenable to this plan. Therefore we ultimately loaded the patient with 1.2 mg of colchicine, 500 mg of naproxen, and 60 mg of prednisone. We will discharge him home with 500 mg of naproxen to take twice daily for 7 days, 0.6 mg of colchicine to take twice daily for 2 days, and 40 mg of prednisone to take for 5 days. I have asked for the patient to call Dr. Jenkins's orthopedic clinic in the morning to establish an appointment for follow-up on this. We have also discussed symptoms that would be compatible with septic arthritis including worsening of symptoms despite the regimen listed above, development of fevers, worsening erythema, worsening pain, and worsening swelling of the joint. Patient acknowledges understanding and is amenable to this plan. At this time all questions have been answered and all parties are agreeable with the decision of discharge home Procedures Joint Aspiration/Injection Joint Asp./Inject. 1: Time Out Performed: Yes Side of body: left Joint Aspirated: interphalangeal (First metatarsophalangeal joint on the left) Ultrasound Guidance: Yes Skin Prep: Chlorhexidine Local Anesthetic: lidocaine 1% Amount of anesthesia used (mL): 4 Needle Size Used: 22G Additional Comments: Needle was inserted into the joint space and procedure was ultimately unsuccessful and I was unable to obtain any fluid Critical Care Critical Care Time Critical Care Time: No
[2025-04-12] MEDS: NAPROXEN 500MG TABLET 500 MG PO (22:03)
[2025-04-12] MEDS: COLCHICINE 0.6MG TABLET 1.2 MG PO (22:03)
== END 2025-04-12 22:10 | disposition home or self-care (01) ==
PROVIDERS: Emergency Provider Student in an Organized Health Care Education/Training Program; PCP Family Medicine
DX: M79.672 Pain in left foot (principal); M25.475 Effusion, left foot
CPT/HCPCS: 73630; 80053; 85025; 85651; 86140; 99284; J2003